=== PATIENT | male | born 1970 | race Caucasian/White ===

== ENCOUNTER 2023-04-25 11:13 | Outpatient (REF) | payer MEDICAID, SELFPAY ==
[2023-04-25 14:49] LABS: MANUAL DIFF FLAG NO
[2023-04-25 14:53] LABS: Basophils Percent Auto 0.3 % (0-2); Eosinophils Absolute Auto 0.1 X10*3/uL (0.0-0.4); Eosinophils Percent Auto 1.5 % (0-4); Hematocrit 49.4 % (42.0-52.0); Hemoglobin 16.4 g/dl (14.0-18.0); Imm Gran Abs Auto 0.03 X10*3/uL (0.00-0.03); Imm Gran Pct Auto 0.3 % (0.0-0.4); Lymphocytes Absolute Auto 1.6 X10*3/uL (1.2-4.9); Lymphocytes Percent Auto 16.8 % (20-40); Mean Corpuscular HGB Conc 33.2 g/dl (31.0-36.0); Mean Corpuscular Hemoglobin 28.8 pg (27.0-33.0); Mean Corpuscular Volume 86.7 fL (80.0-98.0); Mean Platelet Volume 9.3 fL (9.4-12.4); Neutrophils Absolute Auto 6.7 x10*3/uL (2.0-8.3); Neutrophils Percent Auto 70.1 % (45-73); Platelet Count 306 X10*3/uL (160-400); Red Cell Distribution Width 12.8 % (11.0-16.0); White Blood Count 9.5 X10*3/uL (4.8-10.8)
[2023-04-25 15:24] LABS: Alanine Aminotransferase 28 U/L (0-40); Albumin Level 4.5 g/dL (3.5-5.0); Alkaline Phosphatase 105 U/L (39-117); Anion Gap 12 (12-20); Aspartate Amino Transferase 17 U/L (5-37); Bilirubin Total 0.3 mg/dL (0.0-1.0); Blood Urea Nitrogen 23 mg/dL (9-16); Calcium 9.5 mg/dL (8.4-10.2); Carbon Dioxide 25 mmol/L (22-29); Chloride 108 mmol/L (96-108); Cholesterol 221 mg/dL (<200); Estimated Glomerular Filt Rate > 60; Glucose Random 74 mg/dL (60-115); HDL Cholesterol 31 mg/dL (>40); LDL Cholesterol Calculated 136 mg/dL (<100); Potassium 4.1 mmol/L (3.3-5.1); Sodium 141 mmol/L (135-145); Triglycerides 271 mg/dL (<150)
== END 2023-04-25 11:14 | disposition home or self-care (01) ==
LOC: HO.CHCLDS 11:13
PROVIDERS: Visit Provider Internal Medicine
DX: I10 Essential (primary) hypertension (principal)
CPT/HCPCS: 36415; 80053; 80061; 84443; 85025

== ENCOUNTER 2023-05-23 11:48 | Outpatient (REF) | payer MEDICAID, SELFPAY ==
[2023-05-23 15:11] LABS: Prostate Specific Antigen 6.92 ng/mL (<0.05-4.0)
[2023-05-28 14:34] LABS: Testosterone, Free 52.5 pg/mL (35.0-155.0); Testosterone, Total 357 ng/dL (250-1100)
== END 2023-05-23 11:49 | disposition home or self-care (01) ==
LOC: HO.CHCLDS 11:48
PROVIDERS: Visit Provider Internal Medicine
DX: N52.8 Other male erectile dysfunction (principal)
CPT/HCPCS: 36415; 84153; 84402; 84403

== ENCOUNTER → 2023-06-13 12:58 | Outpatient (REF) | payer MEDICAID, SELFPAY ==
--- NOTE | 2023-06-13 13:05 | CA_ITS ---
Transthoracic Echocardiogram Patient (Last, First, Middle): Joseph Bishop, Gender: Male Date of : 1970 Age: 52 Procedure Date: 06/13/2023 Procedure Type: Transthoracic Echocardiogram Location: OP Height: 185.42 cm Weight: 108.86 kg BSA: 2.33 m2 Heart Rate: 66 bpm BP: 125 / 80 mmHg Inspector Type: ALEXANDER Referring MD: Nilsa Morse MD Laborer: Lopez Fritz MD Symptoms: R42 DIZZINESS R4 2 HTN I10 Study Quality: Fair ECG Rhythm: Sinus Conclusions: - Normal study Findings Left Ventricle Normal left ventricular size and systolic function. There is mildly increased left ventricular wall thickness. The visually estimated ejection fraction is between 60-65%. Spectral Doppler is indicative of a normal filling pattern. Peak GLS is -18.9%, within normal limits. Right Ventricle Normal right ventricular cavity size and systolic function. Atria Both atria are normal in size. There is lipomatous hypertrophy of the interatrial septum. There is no evidence of interatrial shunt. Aortic Valve Normal aortic valve structure and function. There is no aortic valve stenosis. There is no aortic valve regurgitation. Mitral Valve Normal mitral valve structure and function. There is trace mitral valve regurgitation. There is no mitral valve stenosis. Pulmonic Valve The pulmonic valve is likely normal. There is trace pulmonic valve regurgitation. Tricuspid Valve Normal tricuspid valve structure. There is trace tricuspid valve regurgitation. The right ventricular systolic pressure is normal. The right ventricular systolic pressure is 13 mmHg. Normal right atrial pressure. There is no evidence of pulmonary hypertension. Great Vessels The pulmonary artery was not well visualized. There is no dilatation of the ascending aorta measuring 3.20 cm. Venous The inferior vena cava is normal in size and collapses greater than 50% with inspiration. Pericardium/Pleural There is no evidence of pericardial effusion. Prior Study Comparison No prior study available for comparison. Measurements 2D Linear Measurements IVSd: 1.12 0.6-0.9/0.6-1.0 cm LVIDd: 3.34 3.9-5.3/4.2-5.9 cm LVIDd Index: 1.43 2.4-3.2/2.2-3.1 cm/m2 LVIDs: 1.88 2.0-3.6 cm LVPWd: 1.14 0.7-1.1 cm LA Diam: 3.40 2.7-3.8/3.0-4.0 cm LAIDs Index: 1.46 1.5-2.3 cm/m2 LV Mass: 211.52 67-162/88-224 g LV Mass Index: 90.78 43-95/49-115 g/m2 LVOT Diam: 1.90 3.0+(-)1.3 cm 2D Systolic Function EF 4C: 64.40 >55% EF 2C: 64.30 >55% EF BiP: 65.10 >55% Mitral Valve MV Pk E: 0.71 MV PK A: 0.63 MV Decel Time: 285.00 E/A: 1.10 E'Lateral: 9.03 E'Medial: 7.83 E/E' Med: 9.00 E/E' Lat: 7.80 PHT: 84.00 MVA PHT: 2.62 Decel Prowers: 2.48 Aortic Valve AoV Pk Saurabh: 1.37 AoV Mn Saurabh: 0.96 AoV VTI: 0.26 AoV Pk Grad: 8.00 Aov Mn Grad: 4.00 VAUGHN Cont.VTI: 2.60 LVOT LVOT Pk Saurabh: 1.32 LVOT Mn Saurabh: 0.90 LVOT VTI: 0.24 LVOT Pk Grad: 7.00 LVOT Mn Grad: 4.00 LVOT Diam: 1.90 LVOT Area: 2.84 Diastolic Function MV Pk E: 0.71 MV Pk A: 0.63 E/A: 1.10 E'Medial: 7.83 E/E' Med: 9.00 E' Laterial: 9.03 E/E' Lat: 7.80 Right Ventricle TAPSE (mm): 21.70 TVS' Saurabh: 12.50 Tricuspid Valve TR Pk Saurabh: 1.60 TR Pk Grad: 10.00 RA Press: 3.00 RVSP: 13.00 Great Vessels Aorta Sinus of Valsalva: 3.50 2.0-3.5 cm Ao Asc: 3.20 2.1-3.4 cm Pulmonary Valve PV Pk Saurabh: 1.26 Peak PV Grad: 6.00 Updated in Other Vendor System with Status of Final Lopez Fritz MD electronically signed on 06/14/2023 2:31:14 PM with status of Final
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
== END ==
LOC: HO.CARD 12:58
PROVIDERS: PCP Internal Medicine; Visit Provider Internal Medicine
DX: I10 Essential (primary) hypertension (principal); R42 Dizziness and giddiness
CPT/HCPCS: 93225; 93306; 93356

== ENCOUNTER → 2023-06-13 13:05 | Outpatient (BNV) | payer MEDICAID, SELFPAY | PROVIDERS: PCP Internal Medicine; Visit Provider Internal Medicine Cardiovascular Disease | DX: R00.1 Bradycardia, unspecified (principal); I47.10 Supraventricular tachycardia, unspecified | CPT/HCPCS: 93227; 93306; 93356 ==

== ENCOUNTER 2023-07-13 12:55 | Outpatient (AMB) | payer MEDICAID, SELFPAY ==
--- NOTE | 2023-07-13 13:15 | MHC.OFFVIS ---
Intake Visit Reasons: elevated PSA, nocturia, erectile dysfunction Intake Note: New patient is present for Elevated PSA, Nocturia, Erectile Dys Urology Med: Tadalafil PVR: 94 Allergies No Known Allergies Allergy (Verified 07/13/23 21:49) Medication List - Last Reconciled 07/13/23 by LEANN Laguna lisinopril-hydrochlorothiazide 20-12.5 mg 1 tab PO QAM rosuvastatin 20 mg PO QAM tadalafil 5 mg PO DAILY tadalafil (Cialis) 5 mg PO DAILY 90 days tadalafil (Cialis) 10 - 20 mg (1 - 2 x 10 mg) PO .PRN PRN 30 days HPI Comments Details: Joseph is a 52 year old male patient of Dr. Morse. He has a PMH of obesity, hypertension, nocturia, hyperlipidemia, and erectile dysfunction. He presents to the office today as a new patient for nocturia, ED, and elevated PSA. In discussion with the patient today he reports having followed up with his PCP at which time labs were ordered and he was noted to have an elevated PSA and recommendations were made for urology referral. He also reports having experienced nocturia for quite some time however has recently had a dental procedure and adjustment of medications were made and he feels this is no longer an issue. He also discusses feeling he has difficulty maintaining his erections. He does endorse to be able to obtain obtain erections. He otherwise denies urinary urgency, urinary frequency, incontinence, nocturia, hematuria, dysuria, foul smelling urine, changes to urinary stream, flank pain, fever, and or chills. He is happy with his current voiding parameters. In office urinalysis results reviewed with the patient today. MALLIKA performed smooth and no suspicious nodules palpated. He denies any known family history of prostate cancer. Discussed at length potential causes for ED and elevated PSA. He otherwise offers no other issues or concerns at this time. In review of patient's chart it appears PSA 05/27 6.9 Testosterone 05/27 357. PFSH Medical History (Updated 07/13/23 @ 21:55 by LEANN Laguna) Nocturia HTN (hypertension) Class 1 obesity Mixed hyperlipidemia Erectile dysfunction Family History Father Chronic kidney disease (CKD) Parkinson disease Social History Patient Tobacco Use Status: Never used Tobacco Review of Systems Const Reports no additional complaints Eyes Reports no additional complaints ENT Reports no additional complaints Card Reports as per HPI Resp Reports no additional complaints GI Reports no additional complaints Reports as per HPI Musc Reports no additional complaints Neuro Reports no additional complaints Psych Reports no additional complaints Endo Reports no additional complaints Alejandro/Lymph Reports no additional complaints Aller/Immun Reports no additional complaints Physical Exam Const General: cooperative, healthy appearing, comfortable, no acute distress, well developed, alert and awake Orientation/consciousness: patient oriented x3 Limitations: no limitations HEENT Head: Yes normal to inspection, Yes normocephalic and Yes atraumatic Ears: hearing grossly normal bilaterally Eyes General: appearance normal, both eyes and all related structures Neck Neck: Yes normal visual inspection and Yes trachea midline Chest Chest palpation & inspection: normal inspection of the chest Resp Effort & Inspection: normal respiratory effort and able to speak in complete sentences Cardio Rate: regular rate GI Inspection: Yes normal to inspection General: Yes no CVA tenderness Back/Spine/Pelvis Back: no CVA tenderness Skin General skin exam: no rashes or lesions noted Neuro General: patient oriented x3 Extrem General: Yes normal to inspection Psych Appearance: grossly normal and well kempt Mental Status: mental status grossly normal Speech and movement: Normal speech and movement present and Clear speech present Affect: normal affect Attitude: cooperative Thought process: Normal thought process present Thought content: Normal thought content present Insight: Fair insight present (Psych) Judgement: Fair judgement present (Psych) Office Procedures Post Void Residual Post Residual Void Post Void Residual (PVR): 94 [id number]-Fpdv Void Residual by ultrasound Results AMB Urinalysis, Automated UA Leukoctes 0 Nicki/uL Last Edit by TAMANNA Babin on 07/13/23 13:37 UA Nitrite Negative Last Edit by TAMANNA Babin on 07/13/23 13:37 UA Urobilinogen 0.2 mg/dL Last Edit by TAMANNA Babin on 07/13/23 13:37 UA Protein 15 mg/dL Last Edit by TAMANNA Babin on 07/13/23 13:37 UA pH 5.0 Last Edit by TAMANNA Babin on 07/13/23 13:37 UA Blood 0 Manish/uL Last Edit by Ileana Ashton, RMA on 07/13/23 13:37 UA Specific [place] 1.025 Last Edit by Ileanalupe Ashton, RMA on 07/13/23 13:37 UA Ketone Negative Last Edit by Ileana Ashton, RMA on 07/13/23 13:37 UA Bilirubin 0 mg/dL Last Edit by Ileana Ashton, RMA on 07/13/23 13:37 UA Glucose 0 mg/dL Last Edit by Ileana Ashton, A on 07/13/23 13:37 Results Reviewed Results Reviewed: Laboratory Last Values Urine pH (Auto) 5.0 07/13/23 13:36 Specific [place] (Auto) 1.025 07/13/23 13:36 Urine Protein (Auto) 15 mg/dL 07/13/23 13:36 Glucose (UA)(Auto) 0 mg/dL 07/13/23 13:36 Urine Ketones (Auto) Negative 07/13/23 13:36 Urine Blood (Auto) 0 Manish/uL 07/13/23 13:36 Urine Nitrite (Auto) Negative 07/13/23 13:36 Urine Bilirubin (Auto) 0 mg/dL 07/13/23 13:36 Urine Urobilinogen (Auto) 0.2 mg/dL 07/13/23 13:36 Leukocyte Esterase (Auto) 0 Nicki/uL 07/13/23 13:36 Assessment & Plan Assessment & Plan (1) Elevated PSA: Code(s): R97.20 - Elevated prostate specific antigen [PSA] Category: Medical (2) Erectile dysfunction: Code(s): N52.9 - Male erectile dysfunction, unspecified Category: Medical Plan In office urinalysis results reviewed with the patient today; as noted above. Discussed at length potential causes for elevated PSA. Patient reports nocturia has since subsided He is happy with his current voiding parameters. Will obtain retroperitoneal ultrasound for further assessment evaluation. Will obtain PSA free and total with no sex the night before, no caffeine morning of, no heavy lifting 1-2 days prior. Continue 5 mg of Cialis daily. P.r.n. prescription provided for additional dosing 1 hour prior to sexual activity. Discussed at length lifestyle modifications to assist with erectile dysfunction. MALLIKA performed; as noted above. Follow-up in 1-2 months with imaging and labs to be completed prior; or sooner with any issues, concerns, and or questions. Orders: Orders US retroperitoneal comp Today R97.20 - Elevated prostate specific antigen [PSA] AMB Urinalysis Automated Today Z13.9 - Encounter for screening, unspecified AMB Post Void Residual by ultrasound Today R35.1 - Nocturia PSA,Total (Free>4and<10) Today R97.20 - Elevated prostate specific antigen [PSA] Medications: New tadalafil (Cialis) [id number] [facility] [id number] 5 mg PO DAILY 90 tabs 2RF 90 days tadalafil (Cialis) administer approximately 30min before sexual activity; do not use more than 1 dose per 24hrs [id number] [facility] [id number] 10 - 20 mg (1 - 2 x 10 mg) PO .PRN PRN 30 tabs 0RF sexual activity 30 days Patient Instructions: The patient had an opportunity to ask questions regarding the treatment plan. All questions were answered. Physical exam, labs, and imaging were discussed and reviewed in detail. As well as risks, benefits, and discussion of treatment choices. No major barriers to understanding were identified. The patient expressed understanding and agreement with the above treatment plan. The patient was made aware they should contact our office by phone for worsening of their current condition, the appearance of new symptoms, or with any questions or concerns. Compliance is encouraged with any medications and follow up testing that is ordered. It is a privilege to be allowed the opportunity to participate in? your urological care.? Again, if you have any questions or concerns If you have any questions or concerns please do not hesitate to contact me. The office is [phone]. This note is constructed using voice recognition software. While every effort has been made to ensure accuracy special education teacher errors may have been included. Yours sincerely, LEANN Laguna Coding Level of Care Code New Pt Level 4 (54469) Diagnoses Elevated PSA R97.20 Erectile dysfunction N52.9 CPT Codes Post Residual Void - PVR CPT Code: 69472-Jjjf Void Residual by ultrasound ([id number])
== END 2023-07-13 14:07 | disposition home or self-care (01) ==
PROVIDERS: PCP Internal Medicine; Visit Provider Nurse Practitioner Family
DX: R97.20 Elevated prostate specific antigen [PSA] (principal); N52.9 Male erectile dysfunction, unspecified; Z13.9 Encounter for screening, unspecified
CPT/HCPCS: 99204

== ENCOUNTER → 2023-07-13 12:55 | Outpatient (BNVA) | payer MEDICAID, SELFPAY | PROVIDERS: PCP Internal Medicine; Visit Provider Nurse Practitioner Family | DX: R97.20 Elevated prostate specific antigen [PSA] (principal); N52.9 Male erectile dysfunction, unspecified | CPT/HCPCS: 51798; 81003; 99212 ==

== ENCOUNTER 2023-07-26 14:07 | Outpatient (REF) | payer MEDICAID, SELFPAY ==
[2023-07-28 12:58] LABS: Free Prostate Spec Ag 2.7 ng/mL; Percent Free Prostate Spec Ag 31 % (calc) (>25); Prostate Specific Ag Total 8.7 ng/mL (< OR = 4.0)
== END 2023-07-26 14:08 | disposition home or self-care (01) ==
LOC: HO.CHCLDS 14:07
PROVIDERS: Visit Provider Nurse Practitioner Family
DX: R97.20 Elevated prostate specific antigen [PSA] (principal)
CPT/HCPCS: 36415; 84153; 84154

== ENCOUNTER 2023-08-08 14:58 | Outpatient (REF) | payer MEDICAID, SELFPAY ==
[2023-08-08 19:06] LABS: PSA,Total (Free>4and<10) 9.23 ng/mL (0.00-4.00)
[2023-08-10 12:59] LABS: Free Prostate Spec Ag 1.2 ng/mL; Percent Free Prostate Spec Ag 15 % (calc) (>25)
== END 2023-08-08 14:59 | disposition home or self-care (01) ==
LOC: HO.CHCLDS 14:58
PROVIDERS: Visit Provider Nurse Practitioner Family
DX: Z12.5 Encounter for screening for malignant neoplasm of prostate (principal); R97.20 Elevated prostate specific antigen [PSA]
CPT/HCPCS: 36415; 84153; 84154

== ENCOUNTER 2023-08-16 09:55 | Outpatient (REF) | payer MEDICAID, SELFPAY ==
--- NOTE | ~2023-08-16 | US_ITS ---
EXAMINATION: US RETROPERITONEAL COMPLETE (RENAL) CLINICAL INFORMATION: Elevated prostate specific antigen. COMPARISON: None available. TECHNIQUE: Real-time imaging of the kidneys and bladder. FINDINGS: RIGHT KIDNEY: 11.4 x 5.8 x 6.1 cm (SAG x AP x TRV). The kidney is normal in size, contour, and echogenicity. Renal cortical thickness is normal. Three right sided echogenic foci are seen consistent with calculi measuring between 4 and 9 mm in size. No hydronephrosis. Multiple complicated benign Bosniak class II renal cysts are noted, the largest measuring 4.1 cm which contain septations. These require no additional imaging or follow-up. No solid renal masses are seen. LEFT KIDNEY: 11.0 x 5.2 x 5.1 cm (SAG x AP x TRV). The kidney is normal in size, contour, and echogenicity. Renal cortical thickness is normal. There is a mid renal echogenic focus measuring 5 mm consistent with a nonobstructing stone. No hydronephrosis. A benign 1.4 cm septated Bosniak class II cyst is noted which requires no additional imaging or follow up. No solid renal masses are seen. BLADDER: Well distended and normal. Bilateral ureteral jets are demonstrated. Prevoid bladder volume is 173 mL. Postvoid bladder volume is 75.8 mL. Enlarged prostate, volume 80.5 mL. US/US retroperitoneal comp IMPRESSION: 1. Bilateral nonobstructing renal calculi. 2. Prostatomegaly measuring 80.5 mL with 75.8 mL postvoid residual. 3. Bilateral Bosniak class II renal cysts which require no additional follow-up.
== END 2023-08-16 09:56 | disposition home or self-care (01) ==
LOC: HO.US 09:55
PROVIDERS: PCP Internal Medicine; Visit Provider Nurse Practitioner Family
DX: R97.20 Elevated prostate specific antigen [PSA] (principal)
CPT/HCPCS: 76770

== ENCOUNTER 2023-09-13 14:40 | Outpatient (AMB) | payer MEDICAID, SELFPAY ==
--- NOTE | 2023-09-13 14:44 | A.OFFVIS_ITS ---
Intake Visit Reasons: 2m/US/PSA(set) Intake Note: Patient presents for follow up visit on: Elevated PSA and Erectile Dysfunction Imagin08/16/23 PSA: 9.23 Urology Medicarions: Tadalafil Blood thinner: none Set Illustrator Required: No Accompanied by: Self / Same As Patient Allergies No Known Allergies Allergy (Verified 09/13/23 21:49) Medication List - Last Reconciled 09/13/23 by DELON Laguna-JOSE levofloxacin 500 mg PO daily 3 days lisinopril-hydrochlorothiazide 20-12.5 mg 1 tab PO QAM rosuvastatin 20 mg PO QAM tadalafil 5 mg PO DAILY tadalafil (Cialis) 5 mg PO DAILY 90 days tadalafil (Cialis) 10 - 20 mg (1 - 2 x 10 mg) PO .PRN PRN 30 days HPI Comments Details: Joseph is a 53 year old male patient of Dr. Morse. He has a PMH of obesity, hypertension, nocturia, hyperlipidemia, and erectile dysfunction. He presents to the office today for follow-up. Of note, patient was seen approximately 2 months ago as a new patient for nocturia, ED, and elevated PSA at which time redraw of PSA was ordered as well as a retroperitoneal ultrasound for further assessment evaluation. These results were reviewed with the patient today. Right kidney with echogenic foci consistent with renal calculi measuring between 4 and 9 mm. No hydronephrosis. Multiple complicated benign Bosniak class 2 renal cysts are noted the largest measuring 4.1 cm which contains septations. These require no additional follow-up per radiology report. Left kidney with mid renal echogenic focus measuring 5 mm consistent with nonobstructing stone. No hydronephrosis. A benign 1.4 cm septated Bosniak class 2 cyst is noted which requires no additional imaging follow-up per radiology report. No solid renal masses noted bilaterally. The bladder is well distended and normal. Bilateral ureteral jets are demonstrated. Pre void bladder volume is approximately 175 mL. Postvoid bladder volume is approximately 75 mL. The prostate is noted to be enlarged at approximately 81 mL. PSAs are as follows: 05/27 6.9, 07/27 9.7 31% free PSA, 08/27 9.2 % free PSA 15%. Discussed at length elevated PSA. Discussed further treatment options to include prostate biopsy versus MRI of the prostate verses surveillance monitoring. Risks and benefits of these interventions were discussed at length. He discusses feeling low-dose Cialis has significantly improved his nocturia and urinary frequency he had been experiencing. He would like to continue at this time. He does continue finding it difficult to maintain his erections. He otherwise denies urinary urgency, urinary frequency, incontinence, hematuria, dysuria, foul smelling urine, changes to urinary stream, flank pain, fever, and or chills. He is happy with his current voiding parameters. In office urinalysis results reviewed with the patient today. MALLIKA during last office visit performed and noted no suspicious nodules palpated. He denies any known family history of prostate cancer. Discussed at length potential causes for ED and elevated PSA. He otherwise offers no other issues or concerns at this time. In review of patient's chart it appears Testosterone 05/27 357. PFSH Medical History Nocturia HTN (hypertension) Class 1 obesity Mixed hyperlipidemia Erectile dysfunction Family History Father Chronic kidney disease (CKD) Parkinson disease Social History Patient Tobacco Use Status: Never used Tobacco Review of Systems Const Reports no additional complaints Eyes Reports no additional complaints ENT Reports no additional complaints Card Reports as per HPI Resp Reports no additional complaints GI Reports no additional complaints Reports as per HPI Musc Reports no additional complaints Neuro Reports no additional complaints Psych Reports no additional complaints Endo Reports no additional complaints Alejandro/Lymph Reports no additional complaints Aller/Immun Reports no additional complaints Physical Exam Const General: cooperative, healthy appearing, comfortable, no acute distress, well developed, alert and awake Orientation/consciousness: patient oriented x3 Limitations: no limitations HEENT Head: Yes normal to inspection, Yes normocephalic and Yes atraumatic Ears: hearing grossly normal bilaterally Eyes General: appearance normal, both eyes and all related structures Neck Neck: Yes normal visual inspection and Yes trachea midline Chest Chest palpation & inspection: normal inspection of the chest Resp Effort & Inspection: normal respiratory effort and able to speak in complete sentences Cardio Rate: regular rate GI Inspection: Yes normal to inspection General: Yes no CVA tenderness Back/Spine/Pelvis Back: no CVA tenderness Skin General skin exam: no rashes or lesions noted Neuro General: patient oriented x3 Extrem General: Yes normal to inspection Psych Appearance: grossly normal and well kempt Mental Status: mental status grossly normal Speech and movement: Normal speech and movement present and Clear speech present Affect: normal affect Attitude: cooperative Thought process: Normal thought process present Thought content: Normal thought content present Insight: Fair insight present (Psych) Judgement: Fair judgement present (Psych) Results AMB Urinalysis, Automated UA Leukoctes 15 Nicki/uL Last Edit by [employer] on 09/13/23 15:06 UA Nitrite Negative Last Edit by [employer] on 09/13/23 15:06 UA Urobilinogen 0.2 mg/dL Last Edit by [employer] on 09/13/23 15:06 UA Protein 0 mg/dL Last Edit by [employer] on 09/13/23 15:06 UA pH 5.5 Last Edit by [employer] on 09/13/23 15:06 UA Blood 10 Manish/uL Last Edit by [employer] on 09/13/23 15:06 UA Specific [place] 1.025 Last Edit by [employer] on 09/13/23 15:06 UA Ketone Negative Last Edit by [employer] on 09/13/23 15:06 UA Bilirubin 0 mg/dL Last Edit by [employer] on 09/13/23 15:06 UA Glucose 0 mg/dL Last Edit by [employer] on 09/13/23 15:06 Results Reviewed Results Reviewed: Laboratory Last Values Urine pH (Auto) 5.5 09/13/23 15:04 Specific [place] (Auto) 1.025 09/13/23 15:04 Urine Protein (Auto) 0 mg/dL 09/13/23 15:04 Glucose (UA)(Auto) 0 mg/dL 09/13/23 15:04 Urine Ketones (Auto) Negative 09/13/23 15:04 Urine Blood (Auto) 10 Manish/uL 09/13/23 15:04 Urine Nitrite (Auto) Negative 09/13/23 15:04 Urine Bilirubin (Auto) 0 mg/dL 09/13/23 15:04 Urine Urobilinogen (Auto) 0.2 mg/dL 09/13/23 15:04 Leukocyte Esterase (Auto) 15 Nicki/uL 09/13/23 15:04 Date of Service: 08/16/23 EXAMINATION: US RETROPERITONEAL COMPLETE (RENAL) FINDINGS: RIGHT KIDNEY: 11.4 x 5.8 x 6.1 cm (SAG x AP x TRV). The kidney is normal in size, contour, and echogenicity. Renal cortical thickness is normal. Three right sided echogenic foci are seen consistent with calculi measuring between 4 and 9 mm in size. No hydronephrosis. Multiple complicated benign Bosniak class II renal cysts are noted, the largest measuring 4.1 cm which contain septations. These require no additional imaging or follow-up. No solid renal masses are seen. LEFT KIDNEY: 11.0 x 5.2 x 5.1 cm (SAG x AP x TRV). The kidney is normal in size, contour, and echogenicity. Renal cortical thickness is normal. There is a mid renal echogenic focus measuring 5 mm consistent with a nonobstructing stone. No hydronephrosis. A benign 1.4 cm septated Bosniak class II cyst is noted which requires no additional imaging or follow up. No solid renal masses are seen. BLADDER: Well distended and normal. Bilateral ureteral jets are demonstrated. Prevoid bladder volume is 173 mL. Postvoid bladder volume is 75.8 mL. Enlarged prostate, volume 80.5 mL. IMPRESSION: 1. Bilateral nonobstructing renal calculi. 2. Prostatomegaly measuring 80.5 mL with 75.8 mL postvoid residual. 3. Bilateral Bosniak class II renal cysts which require no additional follow-up. Assessment & Plan Assessment & Plan (1) Erectile dysfunction: Code(s): N52.9 - Male erectile dysfunction, unspecified Category: Medical (2) Elevated PSA: Code(s): R97.20 - Elevated prostate specific antigen [PSA] Category: Medical (3) Renal cyst: Code(s): N28.1 - Cyst of kidney, acquired Category: Medical (4) Enlarged prostate: Code(s): N40.0 - Benign prostatic hyperplasia without lower urinary tract symptoms Category: Medical Plan: Plan Risks and benefits regarding trans rectal ultrasound with prostate biopsy were discussed.? Options of continued surveillance, no treatment and biopsy were offered. The risks include but are not limited to, urinary tract infection, sepsis, difficulty urinating, bleeding into the rectum or bladder that requires intervention and transfusion,and failure to diagnose prostate cancer. The patient understands the options and the risks involved. They wish to proceed. Printed information was provided to ensure he remains off anticoagulation for the appropriate length of time. He may require cardiology or PCP clearance.? An antibiotic will be administered prior to, and following the p rocedure (5) Nephrolithiasis: Code(s): N20.0 - Calculus of kidney Category: Medical Plan In office urinalysis results reviewed with the patient today; as noted above. Recent retroperitoneal ultrasound results reviewed with the patient today; as noted above. Recent PSA results reviewed with the patient today; as noted above. Discussed, educated, and stressed the importance of hydration relation to nephrolithiasis. Discussed at length potential treatment options for elevated PSA; risks and benefits of these interventions were discussed at length. Continue daily Cialis as well as p.r.n.; refills provided All questions were answered. Will schedule for prostate biopsy as discussed Prescription provided for antibiotic therapy; discussed specific instructions of taking medication day before procedure, day of procedure, and day after. Follow-up per doctor's orders; or sooner with any issues, concerns, and or questions. Orders: Orders AMB Urinalysis Automated Today Z13.9 - Encounter for screening, unspecified Medications: New levofloxacin take 1 tablet day before procedure, 1 tablet day of procedure and 1 tablet day after procedure 500 mg PO daily 3 days 3 tabs 0RF Changed From tadalafil 5 mg PO DAILY To [facility]il [id number] [facility] [id number] 5 mg PO DAILY 90 days 90 tabs 1RF Refilled tadalafil (Cialis) administer approximately 30min before sexual activity; do not use more than 1 dose per 24hrs [id number] [facility] [id number] 10 - 20 mg (1 - 2 x 10 mg) PO .PRN 30 days PRN 30 tabs 0RF sexual activity Discontinued tadalafil (Cialis) [id number] [facility] Member [id number] Discontinued Reason: Duplicate 5 mg PO DAILY 90 days 90 tabs 2RF Patient Instructions: The patient had an opportunity to ask questions regarding the treatment plan. All questions were answered. Physical exam, labs, and imaging were discussed and reviewed in detail. As well as risks, benefits, and discussion of treatment choices. No major barriers to understanding were identified. The patient expressed understanding and agreement with the above treatment plan. The patient was made aware they should contact our office by phone for worsening of their current condition, the appearance of new symptoms, or with any questions or concerns. Compliance is encouraged with any medications and follow up testing that is ordered. It is a privilege to be allowed the opportunity to participate in? your urological care.? Again, if you have any questions or concerns If you have any questions or concerns please do not hesitate to contact me. The office is [phone]. This note is constructed using voice recognition software. While every effort has been made to ensure accuracy insights strategist errors may have been included. Yours sincerely, LEANN Laguna Coding Level of Care Code Est Pt Level 4 (83400) Diagnoses Erectile dysfunction N52.9 Elevated PSA R97.20 Renal cyst N28.1 Enlarged prostate N40.0 Nephrolithiasis N20.0
== END 2023-09-13 15:19 | disposition home or self-care (01) ==
PROVIDERS: PCP Internal Medicine; Visit Provider Nurse Practitioner Family
DX: N52.9 Male erectile dysfunction, unspecified (principal); R97.20 Elevated prostate specific antigen [PSA]; N28.1 Cyst of kidney, acquired; N40.0 Benign prostatic hyperplasia without lower urinary tract symptoms; N20.0 Calculus of kidney; Z13.9 Encounter for screening, unspecified
CPT/HCPCS: 99214

== ENCOUNTER → 2023-09-13 14:40 | Outpatient (BNVA) | payer MEDICAID, SELFPAY | PROVIDERS: PCP Internal Medicine; Visit Provider Nurse Practitioner Family | DX: N52.9 Male erectile dysfunction, unspecified (principal); R97.20 Elevated prostate specific antigen [PSA]; N28.1 Cyst of kidney, acquired; N40.0 Benign prostatic hyperplasia without lower urinary tract symptoms; N20.0 Calculus of kidney; Z79.899 Other long term (current) drug therapy | CPT/HCPCS: 81003; 99212 ==

== ENCOUNTER 2023-10-17 08:01 | Outpatient (REF) | payer MEDICAID, SELFPAY ==
[2023-10-17] MEDS: Lidocaine HCl 1 % MPF 5 ML VIAL 10 ML SUBCUT (08:56)
--- NOTE | 2023-10-17 12:20 | P.OP_ITS ---
Operative Note Operative Note Date of Service: 10/17/23 Narrative: Preoperative diagnosis: Elevated PSA Postoperative diagnosis: Elevated PSA Procedure: 1. transrectal ultrasound measurement of prostate 2. transrectal ultrasound-guided pudendal nerve block 3. transrectal ultrasound-guided prostate biopsy 12 core Surgeon: Dr. Bernard Pang Anesthetic: 10cc 1% lidocaine Indications for procedure: Elevated PSA 08/27 8.0 15% Counselling: Technical aspects, risks and benefits of proposed procedure were discussed in full. All questions have been answered, written consent has been obtained and patient agrees to proceed. Procedure: The patient was brought into the procedure area and placed in a left lateral decubitus position. Patient identity confirmed. Perioperative antibiotics confirmed. Safety pause time out performed. MALLIKA was performed to dilate rectal sphincter Iodine 10cc with 60 cc gel was placed per rectum to reduce infection risk using a catheter tip syringe. 8 Hz Sobia rectal end-fire ultrasound probe was placed transrectally without difficulty. The prostate was visualized. Seminal vesicles were normal. Prostate margins were clearly demarcated. Bladder was seen superiorly. No cystic structures were noted No calcifications were noted at the surgical margin The prostate was otherwise homogeneous in nature The prostate was measured in 3 dimensions Prostatic Width: 5.3 cm Prostatic Height: 5.7 cm Urethral Length: 5.7 cm Total volume equals : 90 ml An ultrasound-guided pudendal nerve block was performed using a 22 gauge spinal needle in the sagittal plane. 4 cc of 1% lidocaine placed at the junction of each seminal vesicle and 2 cc placed at the apex of the prostate. A 12 core biopsy was performed with 6 cores each side using an 18 gauge prostate biopsy gun. Two cores each were taken at the prostate apex, mid and base on each side. Cores were spaced between lateral and medial aspects. Each core was examined as placed on specimen foam as part of vice president quality assurance to ensure a minimum 1 cm of length and minimal discontinuity. He tolerated the procedure well with minimal rectal bleeding. Blood pressure remained stable following procedure. He was able to ambulate to bathroom after 5 minutes. Printed instructions regarding antibiotic use and common adverse events from the procedure such as low-grade temperature, potential infection and bleeding were given. He understands to call the office or go to an emergency room should any of these events arise. Pathology: 12 core prostate biopsy. CPT code 37210: Transrectal ultrasound; this is a diagnostic test for evaluation of the prostate and surrounding structures, looking for abnormalities or suspicious areas worrisome for cancer CPT code 65304: Biopsy, prostate; needle or punch, single or multiple, any approach CPT code 97492: Ultrasonic guidance for needle placement (eg, biopsy, aspiration, injection, localization device), imaging supervision and interpretation
== END 2023-10-17 08:02 | disposition home or self-care (01) ==
LOC: HO.US 08:01
PROVIDERS: PCP Internal Medicine; Visit Provider Urology
DX: R97.20 Elevated prostate specific antigen [PSA] (principal)
CPT/HCPCS: 55700; 76942; 88305

== ENCOUNTER → 2023-10-17 08:01 | Outpatient (BNV) | payer MEDICAID, SELFPAY | PROVIDERS: PCP Internal Medicine; Visit Provider Urology | DX: R97.20 Elevated prostate specific antigen [PSA] (principal) | CPT/HCPCS: 55700; 76872; 76942 ==

== ENCOUNTER 2023-11-03 13:12 | Outpatient (AMB) | payer MEDICAID, SELFPAY ==
--- NOTE | 2023-11-03 13:13 | A.OFFVIS_ITS ---
Intake Visit Reasons: Prostate biopsy results Intake Note: Patient is Present for Telephone Follow Up Prostate Biopsy results Urology Med: Tadalafil Antibiotic Allergy:None Blood Thinner:None Hazardous Substances Scientist Required: No Allergies No Known Allergies Allergy (Verified 11/03/23 13:13) HPI Comments Details: Joseph is a pleasant male. He is a patient of Dr. Kelly. He is see n for the following urologic conditions - elevated PSA - nocturia - erectile dysfunction - nephrolithiasis Telemedicine Evaluation 15 min Consultation DoximYorxs Aidan Video Discussed biopsy results Start finasteride Six-month follow-up Elevated PSA 05/27 6.9, 07/27 9.7 31% free PSA, 08/27 9.2 % free PSA 15%. Ultrasound with prostate volume 80 cc Biopsy - 10/27 negative Nephrolithiasis Renal ultrasound - multiple complicated Bosniak class 2 cysts with 4 mm 9 mm stone on right side Erectile dysfunction Significant improvement in nocturia and urgency frequency with low-dose tadalafil Would like to continue [facility] Medical History Nocturia HTN (hypertension) Class 1 obesity Mixed hyperlipidemia Erectile dysfunction Family History Father Chronic kidney disease (CKD) Parkinson disease Social History Patient Tobacco Use Status: Never used Tobacco Review of Systems Const All systems reviewed & are unremarkable except as noted in HPI and below Reports no additional complaints Resp Reports no additional complaints GI Reports no additional complaints Reports as per HPI Musc Reports no additional complaints Physical Exam Telemedicine evaluation Appropriate responses Regular breathing rate and rhythm HEENT Head: Yes normal to inspection Ears: hearing grossly normal bilaterally Eyes General: appearance normal, both eyes and all related structures Neck Neck: Yes normal visual inspection Chest Chest palpation & inspection: normal inspection of the chest Resp Effort & Inspection: normal respiratory effort and able to speak in complete sentences Telehealth Telehealth Telehealth Platform: [employer] Location of provider rendering services: practice address Location of patient: address on file Patient Identification confirmed using: Name, : Yes Telehealth method: video Patient verbally consented to treatment: Yes Patient verbally consented to billing insurance company: Yes Patient informed of any privacy concerns related to visit: Yes Minutes spent on Phone/Video with Pt.: 15 Assessment & Plan Assessment & Plan (1) Nephrolithiasis: Code(s): N20.0 - Calculus of kidney Category: Medical (2) Elevated PSA: Code(s): R97.20 - Elevated prostate specific antigen [PSA] Category: Medical (3) Erectile dysfunction: Code(s): N52.9 - Male erectile dysfunction, unspecified Category: Medical Plan Start finasteride Six-month follow-up PSA Orders: Orders PSA,Total (Free>4and<10) 6 Months N40.0 - Benign prostatic hyperplasia without lower urinary tract symptoms Medications: New finasteride 5 mg PO DAILY 90 days 90 tabs 1RF N13.8 - Other obstructive and reflux uropathy, N40.0 - Benign prostatic hyperplasia without lower urinary tract symptoms, N40.1 - Benign prostatic hyperplasia with lower urinary tract symptoms, R33.9 - Retention of urine, unspecified Patient Instructions: Imaging studies, laboratory and physical exam results were discussed and reviewed in detail. No major barriers to patient understanding were identified. An opportunity to ask questions regarding the treatment plan was provided. All questions were answered. The patient expressed understanding and agreement with the above treatment plan. The patient is aware they should contact our office by phone for worsening of their current condition or the appearance of new urologic symptoms. Compliance is encouraged with any medications and followup testing that is ordered. It is a privilege to participate in the urologic care of your patient. If you have any questions or concerns regarding treatment for the above conditions, or other urologic issues, please do not hesitate to contact me. The office telep renetta contact is [phone]. This note is constructed using voice recognition software. While every effort has been made to ensure accuracy mechanical manager errors may have been included. Yours sincerely, Dr Bernard Pang MD, ERNESTO [facility] - Urology Providers of Expert, Compassionate Care for the Genitourinary System Coding Level of Care Code Tele Est Pt Level 3 (31886) Diagnoses Nephrolithiasis N20.0 Elevated PSA R97.20 Erectile dysfunction N52.9
== END 2023-11-03 14:16 | disposition home or self-care (01) ==
LOC: HO.HUSH 13:12
PROVIDERS: PCP Internal Medicine; Visit Provider Urology
DX: N20.0 Calculus of kidney (principal); R97.20 Elevated prostate specific antigen [PSA]; N52.9 Male erectile dysfunction, unspecified
CPT/HCPCS: 99213

== ENCOUNTER → 2023-11-03 13:12 | Outpatient (BNVA) | payer MEDICAID, SELFPAY | PROVIDERS: PCP Internal Medicine; Visit Provider Urology ==

== ENCOUNTER 2024-05-02 15:25 | Outpatient (REF) | payer MEDICAID, SELFPAY ==
--- OUTSIDE RECORDS SUMMARY | 2024-05-02 18:45 | XMS_ITS | Encounter Summary ---
Author Organization [employer] Address [address] [place] [address] Care Team Providers Care Ncqa Specialist Name Role Phone Nilsa Morse MD Primary Care Provider [phone] Reason for Visit * Reason Comments Med Refill Encounter Details Date Type Department Care Team ([facility] Contact Info) Description 01/12/2023 Refill [facility] MEDICINE [address], [place] [phone] Nilsa Morse MD [address] [place] [address] Primary hypertension Social History Tobacco Use Types Packs/Day Years Used Date Smoking Tobacco: Never Assessed Sex and Gender Information Value Date Recorded Sex Assigned at Male 01/03/2022 10:33 AM EDT Legal Sex Male 10:33 AM EDT Gender Identity Male 01/03/2022 10:33 AM EDT Sexual Orientation Straight 04/26/2023 5: 58 PM EST documented as of this encounter Plan of Treatment Upcoming Encounters Date Type Department Care Team ([facility] Contact Info) Description 05/20/2024 2:45 PM EDT Office Visit [facility]S [address] [place], [place] [phone] Nilsa Morse MD [address] [place] [address] documented as of this encounter Visit Diagnoses Diagnosis Primary hypertension Unspecified essential hypertension documented in this encounter Care Teams Ncqa Specialist Relationship Specialty Start Date End Date Nilsa Morse MD [address] [place] [address] PCP - General Internal Medicine 04/25/23 documented as of this encounter
--- OUTSIDE RECORDS SUMMARY | 2024-05-02 18:45 | XMS_ITS | Encounter Summary ---
Author Organization [employer] Address [address] [place] [address] [place] [address] Care Team Providers Care Shipyard Supervisor Name Role Phone Nilsa Morse MD Primary Care Provider [phone] Reason for Referral * Consultation (Routine) - Closed Specialty Diagnoses / Procedures Referred By Melvi t Referred To Contact Chiropractic Medicine Diagnoses Neck pain Nilsa Morse MD [address] [place] [address] Phone: tel: fax: [facility] [address] [place] [address] Phone: tel: fax: Referral ID Status Reason Start Date Expiration Date V isits Requested Visits Authorized [id number] Closed Specialty Services Required 05/31/2023 05/30/2024 1 1 * Consultation (Routine) - Closed Specialty Diagnoses / Procedures Referred By Contac t Referred To Contact Urology Diagnoses Nocturia Elevated PSA Nilsa Morse MD [address] [place] [address] Phone: tel: fax: Bernard Pang MD [address] [place] [address] Drive [address] [place] [address] Phone: tel: Referral ID Status Reason Start Date Expiration Date V isits Requested Visits Authorized [id number] Closed Specialty Services Required 05/25/2023 05/24/2024 1 1 Encounter Details Date Type Department Care Team (Late st Contact Info) Description 05/25/2023 Orders Only [facility] [address] [place] [address] Nilsa Morse MD [address] [place] [address] Nocturia (Primary Dx); Elevated PSA; Neck pain Social History Tobacco Use Types Packs/Day Years Used Date Smoking Tobacco: Never Smokeless Tobacco: Never Depression Answer Date Recorded Patient Health Questionnaire-9 Score 1 05/23/2023 Patient Health Questionnaire-9 Score 1 05/23/2023 Last PHQ-9: Questionnaire Data Not on file 0 05/23/2023 Depression Answer Date Recorded Patient Health Questionnaire-2 Score 0 05/23/2023 Sex and Gender Information Value Date Recorded Sex Assigned at Male 01/03/2022 10:33 AM EDT Legal Sex Male 10:33 AM EDT Gender Identity Male 01/03/2022 10:33 AM EDT Sexual Orientation Straight 04/26/2023 5: 58 PM EST documented as of this encounter Plan of Treatment Upcoming Encounters Date Type Department Care Team (Late st Contact Info) Description 05/20/2024 2:45 PM EDT Office Visit [facility] [address] [place] [address] Nilsa Morse MD [address] [place] [address] Scheduled Referrals Name Type Priority Associated Diagnoses Order Schedule Referral to Urology Outpatient Referral Routine Nocturia Elevated PSA Expected: 05/25/2023 (Approximate), Expires: 05/24/2024 Referral to Chiropractic Outpatient Referral Routine Neck pain Expected: 05/31/2023 (Approximate), Expires: 05/30/2024 documented as of this encounter Visit Diagnoses Diagnosis Nocturia- Primary Elevated PSA Elevated prostate specific antigen (PSA) Neck pain Cervicalgia documented in this encounter Additional Health Concerns Assessment Noted Time PHQ-9 Depression Total Score: 1 05/23/19 24 10:34 AM EDT documented as of this encounter Care Teams Shipyard Supervisor Relationship Specialty Start Date End Date Nilsa Morse MD [address] [place] [address] PCP - General Internal Medicine 04/25/23 documented as of this encounter
--- OUTSIDE RECORDS SUMMARY | 2024-05-02 18:45 | XMS_ITS | Clinical Summary ---
Author Organization [employer] Address [address] [place] [address] 7t [place] [address] Care Team Providers Care Distribution Sales Representative Name Role Phone Nilsa Morse MD Primary Care Provider [phone] Allergies No known active allergies Medications amLODIPine (Norvasc) 5 MG tabletIndications:P rimary hypertension Take 1 tablet (5 mg) by mouth in the morning. 90 tablet 3 4 Active lisinopril-hydroCHL OROthiazide 20-12.5 MG tabletIndications:P rimary hypertension Take 1 tablet by mouth in the morning. 90 tablet 3 4 05/23/19 25 Active rosuvastatin (Crestor) 20 MG tabletIndications:M ixed hyperlipidemia Take 1 tablet (20 mg) by mouth in the morning. 30 tablet 11 4 05/23/19 25 Active tadalafil (Cialis) 5 MG tabletIndications:O ther male erectile dysfunction Take 1 tablet (5 mg) by mouth Once per day. 30 tablet 11 4 Active tadalafil (Cialis) 10 MG tabletIndications:O ther male erectile dysfunction Take 1 tablet (10 mg) by mouth if needed each day for erectile dysfunction. 10 tablet 11 4 Active Active Problems Problem Noted Date Diagnosed Date Hypertensive disorder 04/19/2022 Obesity 04/19/2022 Immunizations Name Administration Dates Next Due Pfizer Covid-19 Vaccine 12+ 05/23/2023 Tdap 05/23/2023 Family History Medical History Relation Name Comments dementia Father parkinson disease Father Lung cancer Mother Relation Name Status Comments Father Mother Social History Tobacco Use Types Packs/Day Years Used Date Smoking Tobacco: Never Smokeless Tobacco: Never Depression Answer Date Recorded Patient Health Questionnaire-9 Score 1 05/23/2023 Patient Health Questionnaire-9 Score 1 05/23/2023 Last PHQ-9: Questionnaire Data Not on file 0 05/23/2023 Housing Stability Answer Date Recorded What is your housing situation today? I have faisal sanabria 10/31/[address] you li ve. Do you have problems with any of the following? None of the above 10/31/2023 Food Insecurity Answer Date Recorded Within the past 12 months, y ou worried that your food would run out before you got money to buy more: Never True 10/31/2023 Within the past 12 months,th e food you bought just didn't last and you didn't have enough money to get more: Never True Transportation Answer Date Recorded In the past 12 months, has l ack of transportation kept you from medical appts, meetings, work or from getting things needed for daily living? No 10/31/2023 Utilities Answer Date Recorded In the past 12 months, has t he electric, gas, oil or water company threatened to shut off services in your home? No 10/31/2023 Depression Answer Date Recorded Patient Health Questionnaire-2 Score 0 05/23/2023 Internet Access Answer Date Recorded Internet Access Q1 Yes 11/03/2023 Internet Access Q2 Not on file 11/03/2023 Sex and Gender Information Value Date Recorded Sex Assigned at Male 01/03/2022 10:33 AM EDT Legal Sex Male 10:33 AM EDT Gender Identity Male 01/03/2022 10:33 AM EDT Sexual Orientation Straight 04/26/2023 5: 58 PM EST Last Filed Vital Signs Vital Sign Reading Time Taken Comments Blood Pressure 129/76 11/09/2023 9:16 AM EDT Pulse 64 11/09/2023 9:16 AM EDT Temperature 36.6 ??C (97.9 ??F) 11/09/2023 9:16 AM ED T Respiratory Rate 19 11/09/2023 9:16 AM EDT Oxygen Saturation 100% 11/09/2023 9:16 AM EDT Inhaled Oxygen Concentration - - Weight 107 kg (235 lb) 11/09/2023 9:16 AM EDT Height 185.4 cm (6' 1 ) 11/09/2023 9:16 AM EDT Body Mass Index 31 11/09/2023 9:16 AM EDT Plan of Treatment Upcoming Encounters Date Type Department Care Team ([facility] st Contact Info) Description 05/20/2024 2:45 PM EDT Office Visit [facility] & PEDS [address] [place] [address] Nilsa Morse MD [address] [place] [address] Health Maintenance Due Date Last Done Comments CT Colonography 1970 Colonoscopy 1970 FIT 1970 FOBT 1970 Sigmoidoscopy 1970 Alcohol/Substance Use Screening 1982 Hepatitis C Screening 1988 Hepatitis B Vaccines (1 of 3 - 19+ 3-dose series) 1989 Pneumococcal Vaccine: 50+ Years (1 of 1 - PCV) 2020 Zoster Vaccines (1 of 2) 2020 COVID-19 Vaccine ( season) 2023 05/23/2023, 03/04/2021, 07/27/2020, Additional history exists Influenza Vaccine (#1) 2023 Depression Screening 05/22/2024 05/23/2023, 05/23/19 SDOH Screening 10/30/2024 10/31/2023 Tobacco Screening 11/08/2024 11/09/2023 Colorectal Cancer Screening 05/25/2026 FIT DNA/Cologuard 05/25/2026 05/26/2023 Lipid Panel 04/25/2028 04/25/2023 DTaP/Tdap/Td Vaccines (2 - Td or Tdap) 05/22/2033 05/23/2023 RSV Patients and Patients Aged 60 years or older (1 - 1-dose 75+ series) 2045 HIB Vaccines Aged Out No longer eligi ble based on patient's age to complete this topic HIV Screening Discontinued HPV Vaccines Aged Out No longer eligi ble based on patient's age to complete this topic Hepatitis A Vaccines Aged Out No long er eligible based on patient's age to complete this topic IPV Vaccines Aged Out No longer eligi ble based on patient's age to complete this topic Meningococcal Vaccine Aged Out No kian harlan eligible based on patient's age to complete this topic RSV under 20 months Aged Out No longe r eligible based on patient's age to complete this topic Rotavirus Vaccines Aged Out No longer eligible based on patient's age to complete this topic Procedures Procedure Name Priority Date/Time Associated Diagnosis Comments LAB COLOGUARD?? COLON CANCER SCREEN Routine 05/26/2023 8:30 AM EDT Annual physical exam Screening for colon cancer LIPID PANEL, STANDARD Routine 04/25/2023 11:20 AM EST Primary hypertension from Last 3 Months or Most Recently Relevant to Health Maintenance Results * (ABNORMAL) Cologuard?? colon cancer screening (05/26/2023 8:30 AM EDT) Cologuard Result Positive( A) Negative 06/01/2023 3:26 AM EDT [employer] (CLIA #:[id number]) Comment: POSITIVE TEST RESULT. A positive Cologuard result should be followed with a colonoscopy or visual examination of the colon. The normal value (reference range) for this assay is negative. TEST DESCRIPTION: Composite algorithmic analysis of stool DNA-biomarkers with hemoglobin immunoassay. ?? Quantitative values of individual biomarkers are not reportable and are not associated with individual biomarker result reference ranges. Cologuard is intended for colorectal cancer screening of adults of either sex, 45 years or older, who are at average-risk for colorectal cancer (CRC). Cologuard has been approved for use by the U.S. FDA. The performance of Cologuard was established in a cross sectional study of average-risk adults aged 50-84. Cologuard performance in patients ages 45 to 49 years was estimated by sub-group analysis of near-age groups. Colonoscopies performed for a positive result may find as the most clinically significant lesion: colorectal cancer [4.0%], advanced adenoma (including sessile serrated polyps greater than or equal to 1cm diameter) [20%] or non- advanced adenoma [31%]; or no colorectal neoplasia [45%]. These estimates are derived from a prospective cross-sectional screening study of 10,000 individuals at average risk for colorectal cancer who were screened with both Cologuard and colonoscopy. (Jose Manuel Gant al, N Engl J Med 2014;370(14):6613-6095.) Cologuard may produce a false negative or false positive result (no colorectal cancer or precancerous polyp present at colonoscopy follow up). A negative Cologuard test result does not guarantee the absence of CRC or advanced adenoma (pre-cancer). The current Cologuard screening interval is every 3 years. ([place] Cancer Society and U.S. Multi-Society Task Force). Cologuard performance data in a 10,000 patient pivotal study using colonoscopy as the reference method can be accessed at the following location: www.This Week In/results. Additional description of the Cologuard test process, warnings and precautions can be found at www.[email or web address].Ecal. Stool specimen (specimen) 05/26/2023 8:30 AM EDT 05/27/2023 12:52 PM EDT us Nilsa Morse MD LAB MOLECULAR DIAGNOSTICS O RDERABLES Final Result [employer] (CLIA #:[id number]) [place] [address], * (ABNORMAL) Lipid Panel, Standard (04/25/2023 11:20 AM EST) Triglycerides 271(H) <150 mg/dL [facility] Comment:Desirable Triglyceri de: less than 150 mg/dLBorderline High Triglyceride 150-199 mg/dLHigh Triglyceride: 200-499 mg/dLVery High Triglyceride: greater than or equal to 5OO mg/dL Cholesterol 221(H) <200 mg/dL [facility] Comment:Desirable Cholestero l: less than 200 mg/dLBorderline High Cholesterol: 200-239 mg/dLHigh Cholesterol: greater than 239 mg/dL LDL Cholesterol Calculated 136(H) <100 mg/dL [facility] Comment:Desirable LDL: less than 100 mg/dLNear Optimal/Above Optimal LDL: 110- 129 mg/dLBorderline High LDL: 130-159 mg/dLHigh LDL: 160-189 mg/dLVery High LDL: greater than or equal to 190 mg/dL HDL Cholesterol 31(L) >40 mg/dL [facility] Comment:Desirable HDL: great er than 40 mg/dL Note: This HDL assay may give artificially low results in patients with liver disease. Blood Venous blood specimen / Unknown 04/25/2023 11:20 AM EST 04/25/2023 2:41 PM EST us Nilsa Morse MD LAB BLOOD ORDERABLES Final Result [facility] [address] [place] [phone] from Last 3 Months or Most Recently Relevant to Health Maintenance Insurance [address] [place], [place] [address] Care Teams Distribution Sales Representative Relationship Specialty Start Date End Date Nilsa Morse MD [address] [place] [id number] PCP - General Internal Medicine 04/25/23
--- OUTSIDE RECORDS SUMMARY | 2024-05-02 18:45 | XMS_ITS | Encounter Summary ---
Author Organization [employer] Address [address] [place] [address] [place] [address] Care Team Providers Care Demand Planner Name Role Phone Nilsa Morse MD Primary Care Provider [phone]- [phone] Reason for Visit * Reason Onset Date Comments Med Refill 12/30/2023 Encounter Details Date Type Department Care Team ([facility] st Contact Info) Description 12/30/2023 Refill [facility] [address] [place] [address] Nilsa Morse MD [address] [place] [address] Primary hypertension Social History Tobacco Use Types [...] 05/20/2024 2:45 PM EDT Office Visit [facility] [address] [place] [address] Nilsa Morse MD [address] [place] [address] documented as of this encounter Visit Diagnoses Diagnosis Primary hypertension Unspecified essential hypertension documented in this encounter Additional Health Concerns Assessment Noted Time PHQ-9 Depression Total Score: 1 05/23/19 10:34 AM EDT documented as of this encounter Care Teams Demand Planner Relationship Specialty Start Date End Date Nilsa Morse MD [address] [place] [address] PCP - General Internal Medicine 04/25/23 documented as of this encounter
--- OUTSIDE RECORDS SUMMARY | 2024-05-02 18:45 | XMS_ITS | Encounter Summary ---
Author Organization [employer] Address [address] [place] [address] 7 [place] [address] Care Team Providers Care Partridge Farmer Name Role Phone Nilsa Morse MD Primary Care Provider [phone]- [phone] Encounter Details Date Type Department Care Team ([facility] Contact Info) Description 04/19/2022 Orders Only [facility] [address] [place] [address] Nilsa Morse MD [address] [place], [place] [phone] Primary hypertension (Primary Dx) Social History Tobacco Use Types Packs/Day Years [...] Encounters Date Type Department Care Team (Late Contact Info) Description 05/20/2024 2:45 PM EDT Office Visit [facility] [address] [place], [place] [phone] Nilsa Morse MD [address] [place], [place] [phone] Scheduled Orders Name Type Priority Associated Diagnoses Orde r Schedule Comprehensive Metabolic Panel Lab Routine Primary hypertension Expected: 04/19/2022 (Approximate), Expires: 04/19/2023 CBC auto differential Lab Routine Primary hypertension Expected: 04/19/2022 (Approximate), Expires: 04/19/2023 TSH W/Reflex to FT4 Lab Routine Primary hypertension Expected: 04/19/2022 (Approximate), Expires: 04/19/2023 Lipid Panel, Standard Lab Routine Primary hypertension Expected: 04/19/2022 (Approximate), Expires: 04/19/2023 Hemoglobin A1c Lab Routine Primary hypertension Expected: 04/19/2022 (Approximate), Expires: 04/19/2023 documented as of this encounter Visit Diagnoses Diagnosis Primary hypertension- Primary Unspecified essential hypertension documented in this encounter Care Teams Partridge Farmer Relationship Specialty Start Date End Date Nilsa Morse MD [address] [place] [address] PCP - General Internal Medicine 04/25/23 documented as of this encounter
--- OUTSIDE RECORDS SUMMARY | 2024-05-02 18:45 | XMS_ITS | Encounter Summary ---
Author Organization [employer] Address [address] [place] [address] [place] [address] Care Team Providers Care Indian Blanket Weaver Name Role Phone Nilsa Morse MD Primary Care Provider [phone]- [phone] Reason for Visit * Reason Onset Date Comments Med Refill 08/21/2023 Encounter Details Date Type Department Care Team (Late st Contact Info) Description 08/21/2023 Refill [facility] [address] [place] [address] Nilsa Mores MD [address] [place] [address] Other male erectile dysfunction Social History Tobacco Use Types Packs/Day Years [...] Description 05/20/2024 2:45 PM EDT Office Visit [facility] [address] [place] [address] Nilsa Morse MD [address] [place] [address] documented as of this encounter Visit Diagnoses Diagnosis Other male erectile dysfunction documented in this encounter Additional Health Concerns Assessment Noted Time PHQ-9 Depression Total Score: 1 05/23/19 24 10:34 AM EDT documented as of this encounter Care Teams Indian Blanket Weaver Relationship Specialty Start Date End Date Nilsa Morse MD [address] [place] [address] PCP - General Internal Medicine 04/25/23 documented as of this encounter
--- OUTSIDE RECORDS SUMMARY | 2024-05-02 18:45 | XMS_ITS | Encounter Summary ---
Author Organization [employer] Address [address] [place] [address] Care Team Providers Care Behavioral Health Aide Name Role Phone Nilsa Morse MD Primary Care Provider [phone]- [phone] Encounter Details Date Type Department Care Team ([facility] Contact Info) Description 01/18/2023 Orders Only [facility] [address] [place] [address] Nilsa Morse MD [address] [place] [address] Primary hypertension Social History Tobacco Use Types [...] Description 05/20/2024 2:45 PM EDT Office Visit [facility] PEDS [address] [place] [address] Nilsa Morse MD [address] [place] [address] documented as of this encounter Visit Diagnoses Diagnosis Primary hypertension Unspecified essential hypertension documented in this encounter Care Teams Behavioral Health Aide Relationship Specialty Start Date End Date Nilsa Morse MD [address] [place] [address] PCP - General Internal Medicine 04/25/23 documented as of this encounter
--- OUTSIDE RECORDS SUMMARY | 2024-05-02 18:45 | XMS_ITS | Encounter Summary ---
Author Organization [employer] Address [address] [place] [address] [place] [address] Care Team Providers Care Dobby Loom Fixer Name Role Phone Nilsa Morse MD Primary Care Provider [phone]- [phone] Encounter Details Date Type Department Care Team (Late st Contact Info) Description 04/16/2023 Refill [facility] [address] [place] [address] Nilsa Morse MD [address] [place] [address] Primary hypertension Social History Tobacco Use Types [...] Description 05/20/2024 2:45 PM EDT Office Visit [facility] & PEDS [address] [place] [address] Nilsa Morse MD [address] [place] [address] documented as of this encounter Visit Diagnoses Diagnosis Primary hypertension Unspecified essential hypertension documented in this encounter Care Teams Dobby Loom Fixer Relationship Specialty Start Date End Date Nilsa Morse MD [address] [place] [address] PCP - General Internal Medicine 04/25/23 documented as of this encounter
--- OUTSIDE RECORDS SUMMARY | 2024-05-02 18:45 | XMS_ITS | Encounter Summary ---
Author Organization [employer] Address [address] [place] [address] [place] [address] Care Team Providers Care Blackjack Pit Boss Name Role Phone Nilsa Morse MD Primary Care Provider [phone] Encounter Details Date Type Department Care Team ([facility] Contact Info) Description 06/23/2023 Orders Only [facility] [address] [place], [place] [phone] Nilsa Morse MD [address] [place] [address] Other male erectile dysfunction Social History Tobacco [...] Description 05/20/2024 2:45 PM EDT Office Visit [facility] [address] [place], [place] [phone] Nilsa Morse MD [address] [place], [place] [phone] documented as of this encounter Visit Diagnoses Diagnosis Other male erectile dysfunction documented in this encounter Additional Health Concerns Assessment Noted Time PHQ-9 Depression Total Score: 1 05/23/19 10:34 AM EDT documented as of this encounter Care Teams Blackjack Pit Boss Relationship Specialty Start Date End Date Nilsa Morse MD [address] [place] [address] PCP - General Internal Medicine 04/25/23 documented as of this encounter
--- OUTSIDE RECORDS SUMMARY | 2024-05-02 18:45 | XMS_ITS | Encounter Summary ---
Author Organization [employer] Address [address] [place] [address] [place] [address] Care Team Providers Care Pan Helper Name Role Phone Nilsa Morse MD Primary Care Provider +1- [phone] Encounter Details Date Type Department Care Team ([facility] Contact Info) Description 07/26/2023 Orders Only [facility] [address] [place], [place] [phone] Nilsa Morse MD [address] [place], [place] [phone] Other male erectile dysfunction (Primary Dx) Social History Tobacco Use Types [...] Upcoming Encounters Date Type Department Care Team ([facility] Contact Info) Description 05/20/2024 2:45 PM EDT Office Visit [facility] [address] [place], [place] [phone] Nilsa Morse MD [address] [place] [address] documented as of this encounter Procedures Procedure Name Priority Date/Time Associated Diagnosis Comments US RETROPERITONEAL COMPLETE Routine 08/16/2023 10:20 AM EDT documented in this encounter Results * US Retroperitoneal Complete (08/16/2023 10:20 AM EDT) Anatomical Region Laterality Modality Ultrasound 08/16/2023 10:2 0 AM EDT Narrative 09/06/2023 10:42 AM EDT ? [facility] ?[address] ?[place] [address] ? Ultrasound Report ? Signed ? Patient: Joseph Bishop ?MR#: [id number] ?? [id number] ? : 1970 ?Acct:[id number] ? Age/Sex: 52 / M ?ADM Date: 08/16/23 ? Loc: HO.US ? Attending Dr: Bhavana NORIEGA ? Ordering Physician: Bhavana Valdivia ?? Date of Service: 08/16/23 ?? Procedure(s): US retroperitoneal comp ?? Accession Number(s): [id number] ? cc: Nilsa Morse MD; Bhavana Valdivia ? EXAMINATION: ?? US RETROPERITONEAL COMPLETE (RENAL) ? CLINICAL INFORMATION: ?? Elevated prostate specific antigen. ? COMPARISON: ?? None available. ? TECHNIQUE: ?? Real-time imaging of the kidneys and bladder. ? FINDINGS: ? RIGHT KIDNEY: 11.4 x 5.8 x 6.1 cm (SAG x AP x TRV). The kidney is ?? normal in size, contour, and echogenicity. Renal cortical thickness is ?? normal. Three right sided echogenic foci are seen consistent with ?? calculi measuring between 4 and 9 mm in size. No hydronephrosis. ?? Multiple complicated benign Bosniak class II ??renal cysts are noted, ?? the largest measuring 4.1 cm which contain septations. These require no ?? additional imaging or follow-up. No solid renal masses are seen. ? LEFT KIDNEY: 11.0 x 5.2 x 5.1 cm (SAG x AP x TRV). The kidney is normal ?? in size, contour, and echogenicity. Renal cortical thickness is normal. ?? There is a mid renal echogenic focus measuring 5 mm consistent with a ?? nonobstructing stone. No hydronephrosis. A benign 1.4 cm septated ?? Bosniak class II cyst is noted which requires no additional imaging or ?? follow up. No solid renal masses are seen. ? BLADDER: Well distended and normal. Bilateral ureteral jets are ?? demonstrated. Prevoid bladder volume is 173 mL. Postvoid bladder volume ?? is 75.8 mL. ? Enlarged prostate, volume 80.5 mL. ? US/US retroperitoneal comp ?? IMPRESSION: ?? 1. Bilateral nonobstructing renal calculi. ? 2. Prostatomegaly measuring 80.5 mL with 75.8 mL postvoid residual. ? 3. Bilateral Bosniak class II renal cysts which require no additional ?? follow-up. ? Dictated By: ?Jayden Wilhelm MD ? Signed By: ?<Electronically signed by Jayden Wilhelm MD in OV> ? 09/06/23 1038 ? DD/ 1020 ? TD/TT: ? Soap Tender: SS ? Procedure Note Erin Alford - 09/06/2023 [place] [address] Ultrasound Report Signed Patient: Cami Bishop#: [id number] : 1970Acct:[id number] Age/Sex: 52 / MADM Date: 08/16/23 Loc: HO.US Attending Dr: Bhavana NORIEGA Ordering Physician: Bhavana Valdivia Date of Service: 08/16/23 Procedure(s): US retroperitoneal comp Accession Number(s): [id number] cc: Nilsa Morse MD; Bhavana Valdivia EXAMINATION: US RETROPERITONEAL COMPLETE (RENAL) CLINICAL INFORMATION: Elevated prostate specific antigen. COMPARISON: None available. TECHNIQUE: Real-time imaging of the kidneys and bladder. FINDINGS: RIGHT KIDNEY: 11.4 x 5.8 x 6.1 cm (SAG x AP x TRV). The kidney is normal in size, contour, and echogenicity. Renal cortical thickness is normal. Three right sided echogenic foci are seen consistent with calculi measuring between 4 and 9 mm in size. No hydronephrosis. Multiple complicated benign Bosniak class II renal cysts are noted, the largest measuring 4.1 cm which contain septations. These require no additional imaging or follow-up. No solid renal masses are seen. LEFT KIDNEY: 11.0 x 5.2 x 5.1 cm (SAG x AP x TRV). The kidney is normal in size, contour, and echogenicity. Renal cortical thickness is normal. There is a mid renal echogenic focus measuring 5 mm consistent with a nonobstructing stone. No hydronephrosis. A benign 1.4 cm septated Bosniak class II cyst is noted which requires no additional imaging or follow up. No solid renal masses are seen. BLADDER: Well distended and normal. Bilateral ureteral jets are demonstrated. Prevoid bladder volume is 173 mL. Postvoid bladder volume is 75.8 mL. Enlarged prostate, volume 80.5 mL. US/US retroperitoneal comp IMPRESSION: 1. Bilateral nonobstructing renal calculi. 2. Prostatomegaly measuring 80.5 mL with 75.8 mL postvoid residual. 3. Bilateral Bosniak class II renal cysts which require no additional follow-up. Dictated By: Jayden Wilhelm MD Signed By: <Electronically signed by Jayden Wilhelm MD in OV> 09/06/23 1038 DD/ 1020 TD/TT: Soap Tender: SS us [facility] External Provider IMG US PROCEDURES Final Result documented in this encounter Visit Diagnoses Diagnosis Other male erectile dysfunction- Primary documented in this encounter Additional Health Concerns Assessment Noted Time PHQ-9 Depression Total Score: 1 05/23/19 10:34 AM EDT documented as of this encounter Care Teams Pan Helper Relationship Specialty Start Date End Date Nilsa Morse MD [address] [place] [id number] PCP - General Internal Medicine 04/25/23 documented as of this encounter
--- OUTSIDE RECORDS SUMMARY | 2024-05-02 18:46 | XMS_ITS | Encounter Summary ---
Author Organization [employer] Address [address] [place] [address] Care Team Providers Care Powertrain Design Engineer Name Role Phone Nilsa Morse MD Primary Care Provider [phone]- [phone] Encounter Details Date Type Department Care Team (Late Contact Info) Description 04/21/2023 Orders Only [facility] [address] [place] [address] Nilsa Morse MD [address] [place] [address] Primary hypertension Social History Tobacco Use Types [...] Description 05/20/2024 2:45 PM EDT Office Visit [facility] [address] [place] [address] Nilsa Morse MD [address] [place] [address] documented as of this encounter Visit Diagnoses Diagnosis Primary hypertension Unspecified essential hypertension documented in this encounter Care Teams Powertrain Design Engineer Relationship Specialty Start Date End Date Nilsa Morse MD [address] [place] [address] PCP - General Internal Medicine 04/25/23 documented as of this encounter
[2024-05-02 19:17] LABS: PSA,Total (Free>4and<10) 4.96 ng/mL (0.00-4.00)
[2024-05-06 09:39] LABS: Free Prostate Spec Ag 0.7 ng/mL; Percent Free Prostate Spec Ag 14 % (calc) (>25); Prostate Specific Ag Total 4.9 ng/mL (< OR = 4.0)
== END 2024-05-02 15:26 | disposition home or self-care (01) ==
LOC: HO.CHCLDS 15:25
PROVIDERS: Visit Provider Urology
DX: N40.0 Benign prostatic hyperplasia without lower urinary tract symptoms (principal)
CPT/HCPCS: 36415; 84153; 84154

== ENCOUNTER 2024-05-06 14:24 | Outpatient (AMB) | payer MEDICAID, SELFPAY ==
--- NOTE | 2024-05-06 14:25 | MHC.OFFVIS ---
Intake Visit Reasons: 6m/PSA Intake Note: Patient is Present for PSA/erectile dysfunction/nephrothiasis Urology Med: Tadalafil Antibiotic Allergy:None Blood Thinner:None PSA: 4.96 Plant Engineering Supervisor Required: No Allergies No Known Allergies Allergy (Verified 05/06/24 16:39) Medication List - Last Reconciled 05/06/24 by Bhavana Valdivia, FREIGHT TALLIER- amlodipine 5 mg PO QAM finasteride 5 mg PO DAILY 90 days lisinopril-hydrochlorothiazide 20-12.5 mg 1 tab PO QAM rosuvastatin 20 mg PO QAM tadalafil 5 mg PO DAILY 90 days tadalafil (Cialis) 10 - 20 mg (1 - 2 x 10 mg) PO .PRN PRN 30 days HPI Comments Details: Joseph is a 53 year old male patient of Dr. Morse. He has a PMH of obesity, hypertension, nocturia, hyperlipidemia, and erectile dysfunction. He presents to the office today for follow-up of his elevated PSA. Of note, patient underwent prostate biopsy with Dr. Pang 10/27 that was negative at which time he was started on finasteride and recommendations were made for six-month follow-up with PSA. Previous workup has included a retroperitoneal ultrasound 08/27 noting right kidney with echogenic foci consistent with renal calculi measuring between 4 and 9 mm. No hydronephrosis. Multiple complicated benign Bosniak class 2 renal cysts are noted the largest measuring 4.1 cm which contains septations. These require no additional follow-up per radiology report. Left kidney with mid renal echogenic focus measuring 5 mm consistent with nonobstructing stone. No hydronephrosis. A benign 1.4 cm septated Bosniak class 2 cyst is noted which requires no additional imaging follow-up per radiology report. No solid renal masses noted bilaterally. The bladder is well distended and normal. Bilateral ureteral jets are demonstrated. Pre void bladder volume is approximately 175 mL. Postvoid bladder volume is approximately 75 mL. The prostate is noted to be enlarged at approximately 81 mL. PSAs are as follows: 05/27 6.9, 07/27 9.7 31% free PSA, 08/27 9.2 % free PSA 15%, 04/30 5.0 % free PSA 14% We discussed significant decrease in PSA. He reports significant improvement in episodes of nocturia with low-dose of Cialis. When asked he denies urinary urgency, urinary frequency, incontinence, hematuria, dysuria, foul smelling urine, changes to urinary stream, flank pain, fever, and or chills. He is happy with his current voiding parameters. In office urinalysis results reviewed with the patient today. He has no family history of prostate cancer that he is aware of. He otherwise offers no other issues or concerns at this time. In review of patient's chart it appears Testosterone 05/27 357. PFSH Medical History Nocturia HTN (hypertension) Class 1 obesity Mixed hyperlipidemia Erectile dysfunction Family History Father Chronic kidney disease (CKD) Parkinson disease Social History Patient Tobacco Use Status: Never used Tobacco Review of Systems Const Reports no additional complaints Eyes Reports no additional complaints ENT Reports no additional complaints Card Reports as per HPI Resp Reports no additional complaints GI Reports no additional complaints Reports as per HPI Musc Reports no additional complaints Neuro Reports no additional complaints Psych Reports no additional complaints Endo Reports no additional complaints Alejandro/Lymph Reports no additional complaints Aller/Immun Reports no additional complaints Physical Exam Const General: cooperative, healthy appearing, comfortable, no acute distress, well developed, alert and awake Orientation/consciousness: patient oriented x3 Limitations: no limitations HEENT Head: Yes normal to inspection, Yes normocephalic and Yes atraumatic Ears: hearing grossly normal bilaterally Eyes General: appearance normal, both eyes and all related structures Neck Neck: Yes normal visual inspection and Yes trachea midline Chest Chest palpation & inspection: normal inspection of the chest Resp Effort & Inspection: normal respiratory effort and able to speak in complete sentences Cardio Rate: regular rate GI Inspection: Yes normal to inspection General: Yes no CVA tenderness Back/Spine/Pelvis Back: no CVA tenderness Skin General skin exam: no rashes or lesions noted Neuro General: patient oriented x3 Extrem General: Yes normal to inspection Psych Appearance: grossly normal and well kempt Mental Status: mental status grossly normal Speech and movement: Normal speech and movement present and Clear speech present Affect: normal affect Attitude: cooperative Thought process: Normal thought process present Thought content: Normal thought content present Insight: Fair insight present (Psych) Judgement: Fair judgement present (Psych) Results AMB Urinalysis, Automated UA Leukoctes 0 Nicki/uL Last Edit by Talya Prasad on 05/06/24 14:40 UA Nitrite Negative Last Edit by Crystal Prasad on 05/06/24 14:40 UA Urobilinogen 0.2 mg/dL Last Edit by Crystal Prasad on 05/06/24 14:40 UA Protein 15 mg/dL Last Edit by Crystal Prasad on 05/06/24 14:40 UA pH 6.0 Last Edit by Crystal Prasad on 05/06/24 14:40 UA Blood 10 Manish/uL Last Edit by Crystal Prasad on 05/06/24 14:40 UA Specific [place] 1.020 Last Edit by Talya Prasad on 05/06/24 14:40 UA Ketone Negative Last Edit by Crystal Prasad on 05/06/24 14:40 UA Bilirubin 0 mg/dL Last Edit by Talya Prasad on 05/06/24 14:40 UA Glucose 0 mg/dL Last Edit by Talya Prasad on 05/06/24 14:40 Results Reviewed Results Reviewed: Laboratory Last Values Urine pH (Auto) 6.0 05/06/24 14:26 Specific [place] (Auto) 1.020 05/06/24 14:26 Urine Protein (Auto) 15 mg/dL 05/06/24 14:26 Glucose (UA)(Auto) 0 mg/dL 05/06/24 14:26 Urine Ketones (Auto) Negative 05/06/24 14:26 Urine Blood (Auto) 10 Manish/uL 05/06/24 14:26 Urine Nitrite (Auto) Negative 05/06/24 14:26 Urine Bilirubin (Auto) 0 mg/dL 05/06/24 14:26 Urine Urobilinogen (Auto) 0.2 mg/dL 05/06/24 14:26 Leukocyte Esterase (Auto) 0 Nicki/uL 05/06/24 14:26 Assessment & Plan Assessment & Plan (1) Nephrolithiasis: Code(s): N20.0 - Calculus of kidney Category: Medical (2) Enlarged prostate: Code(s): N40.0 - Benign prostatic hyperplasia without lower urinary tract symptoms Category: Medical (3) Renal cyst: Code(s): N28.1 - Cyst of kidney, acquired Category: Medical (4) Erectile dysfunction: Code(s): N52.9 - Male erectile dysfunction, unspecified Category: Medical (5) Elevated PSA: Code(s): R97.20 - Elevated prostate specific antigen [PSA] Category: Medical Plan In office urinalysis results reviewed with the patient today; as noted above. Recent PSA results reviewed with the patient today; as noted above. Continue finasteride. Continue Cialis daily dosing and p.r.n. dosing as prescribed. Patient currently denies any bothersome urinary issues or concerns. He reports be happy with current voiding parameters. Will obtain renal ultrasound as well as PSA in 6 months. Follow-up in 6 months with imaging and labs to be completed prior; or sooner with any issues, concerns, and or questions. Orders: Orders Prostate Specific Antigen 6 Months N40.0 - Benign prostatic hyperplasia without lower urinary tract symptoms, R97.20 - Elevated prostate specific antigen [PSA] AMB Urinalysis Automated Today Z13.9 - Encounter for screening, unspecified US renal BI 6 Months N20.0 - Calculus of kidney Medications: Refilled tadalafil [id number] [facility] [id number] Member [id number] 5 mg PO DAILY 90 tabs 1RF 90 days finasteride 5 mg PO DAILY 90 tabs 3RF 90 days N13.8 - Other obstructive and reflux uropathy, N40.0 - Benign prostatic hyperplasia without lower urinary tract symptoms, N40.1 - Benign prostatic hyperplasia with lower urinary tract symptoms, R33.9 - Retention of urine, unspecified tadalafil (Cialis) administer approximately 30min before sexual activity; do not use more than 1 dose per 24hrs [id number] [facility] [id number] Member [id number] 10 - 20 mg (1 - 2 x 10 mg) PO .PRN PRN 30 tabs 0RF sexual activity 30 days Patient Instructions: The patient had an opportunity to ask questions regarding the treatment plan. All questions were answered. Physical exam, labs, and imaging were discussed and reviewed in detail. As well as risks, benefits, and discussion of treatment choices. No major barriers to understanding were identified. The patient expressed understanding and agreement with the above treatment plan. The patient was made aware they should contact our office by phone for worsening of their current condition, the appearance of new symptoms, or with any questions or concerns. Compliance is encouraged with any medications and follow up testing that is ordered. It is a privilege to be allowed the opportunity to participate in? your urological care.? Again, if you have any questions or concerns If you have any questions or concerns please do not hesitate to contact me. The office is [phone]. This note is constructed using voice recognition software. While every effort has been made to ensure accuracy deliverer pharmacy errors may have been included. Yours sincerely, LEANN Laguna Coding Level of Care Code Est Pt Level 3 (66024) Diagnoses Nephrolithiasis N20.0 Enlarged prostate N40.0 Renal cyst N28.1 Erectile dysfunction N52.9 Elevated PSA R97.20
--- OUTSIDE RECORDS SUMMARY | 2024-05-06 17:10 | XMS_ITS | Encounter Summary ---
Author Organization [employer] Address [address] [place] [address] [place] [address] Care Team Providers Care Pipeline Inspector Name Role Phone Nilsa Morse MD Primary Care Provider [phone]- [phone] Reason for Visit * Reason Onset Date Comments Med Refill 08/21/2023 Encounter Details Date Type Department Care Team (Late st Contact Info) Description 08/21/2023 Refill [facility] [address] [place] [address] Nilsa Morse MD [address] [place] [address] Other male erectile dysfunction Social History Tobacco [...] Description 05/20/2024 2:45 PM EDT Office Visit [facility] [address] [place] [address] Nilsa Morse MD [address] [place] [address] documented as of this encounter Visit Diagnoses Diagnosis Other male erectile dysfunction documented in this encounter Additional Health Concerns Assessment Noted Time PHQ-9 Depression Total Score: 1 05/23/19 24 10:34 AM EDT documented as of this encounter Care Teams Pipeline Inspector Relationship Specialty Start Date End Date Nilsa Morse MD [address] [place] [address] PCP - General Internal Medicine 04/25/23 documented as of this encounter
--- OUTSIDE RECORDS SUMMARY | 2024-05-06 17:10 | XMS_ITS | Encounter Summary ---
Author Organization [employer] Address [address] [place] [address] [place] [address] Care Team Providers Care Investment Banking Analyst Name Role Phone Nilsa Morse MD Primary Care Provider [phone]- [phone] Reason for Visit * Reason Onset Date Comments Med Refill 12/30/2023 Encounter Details Date Type Department Care Team ([facility] st Contact Info) Description 12/30/2023 Refill [facility] [address] [place] [address] Nilsa Morse MD [address] [place] [address] Primary hypertension Social History Tobacco Use Types [...] 2:45 PM EDT Office Visit [facility] [address] [place] [address] Nilsa Morse MD [address] [place] [address] documented as of this encounter Visit Diagnoses Diagnosis Primary hypertension Unspecified essential hypertension documented in this encounter Additional Health Concerns Assessment Noted Time PHQ-9 Depression Total Score: 1 05/23/19 10:34 AM EDT documented as of this encounter Care Teams Investment Banking Analyst Relationship Specialty Start Date End Date Nilsa Morse MD [address] [place] [address] PCP - General Internal Medicine 04/25/23 documented as of this encounter
--- OUTSIDE RECORDS SUMMARY | 2024-05-06 17:10 | XMS_ITS | Encounter Summary ---
Author Organization [employer] Address [address] [place] [address] [place] [address] Care Team Providers Care Lead Cargo Mover Name Role Phone Nilsa Morse MD Primary Care Provider [phone]- [phone] Encounter Details Date Type Department Care Team (Late Contact Info) Description 01/18/2023 Orders Only [facility] [address] [place] [address] Nilsa Morse MD [address] [place] [address] Primary hypertension Social History Tobacco Use Types [...] Description 05/20/2024 2:45 PM EDT Office Visit [facility] [address] [place] [address] Nilsa Morse MD [address] [place] [address] documented as of this encounter Visit Diagnoses Diagnosis Primary hypertension Unspecified essential hypertension documented in this encounter Care Teams Lead Cargo Mover Relationship Specialty Start Date End Date Nilsa Morse MD [address] [place] [address] PCP - General Internal Medicine 04/25/23 documented as of this encounter
--- OUTSIDE RECORDS SUMMARY | 2024-05-06 17:10 | XMS_ITS | Encounter Summary ---
Author Organization [employer] Address [address] [place] [address] 7 [place] [address] Care Team Providers Care Potline Monitor Name Role Phone Nilsa Morse MD Primary Care Provider +1- [phone] Encounter Details Date Type Department Care Team ([facility] Contact Info) Description 04/19/2022 Orders Only [facility] [address] [place] [address] Nilsa Morse MD [address] [place], [place] [phone] Primary hypertension (Primary Dx) Social History Tobacco [...] Description 05/20/2024 2:45 PM EDT Office Visit [facility] [address] [place], [place] [phone] Nilsa Morse MD [address] [place], [place] [phone] Scheduled Orders Name Type Priority Associated Diagnoses [...] hypertension documented in this encounter Care Teams Potline Monitor Relationship Specialty Start Date End Date Nilsa Morse MD [address] [place] [address] PCP - General Internal Medicine 04/25/23 documented as of this encounter
--- OUTSIDE RECORDS SUMMARY | 2024-05-06 17:10 | XMS_ITS | Encounter Summary ---
Author Organization [employer] Address [address] [place] [address] Care Team Providers Care Health Assistant Name Role Phone Nilsa Morse MD Primary Care Provider +1- [phone] Encounter Details Date Type Department Care Team (Late Contact Info) Description 04/21/[address] [facility] [address] [place] [address] Nilsa Morse MD [address] [place] [address] Primary hypertension Social History Tobacco Use Types [...] PM EDT Office Visit [facility] [address] [place] [address] Nilsa Morse MD [address] [place] [address] documented as of this encounter Visit Diagnoses Diagnosis Primary hypertension Unspecified essential hypertension documented in this encounter Care Teams Health Assistant Relationship Specialty Start Date End Date Nilsa Morse MD [address] [place] [address] PCP - General Internal Medicine 04/25/23 documented as of this encounter
--- OUTSIDE RECORDS SUMMARY | 2024-05-06 17:10 | XMS_ITS | Encounter Summary ---
Author Organization [employer] Address [address] [place] [address] Care Team Providers Care Unemployment Insurance Director Name Role Phone Nilsa Morse MD Primary Care Provider [phone]- [phone] Reason for Visit * Reason Comments Med Refill Encounter Details Date Type Department Care Team ([facility] Contact Info) Description 01/12/2023 Refill [facility] [address] [place], [place] [phone] Nilsa Morse MD [address] [place] [address] Primary hypertension Social History Tobacco Use Types [...] Upcoming Encounters Date Type Department Care Team ([facility] Contact Info) Description 05/20/2024 2:45 PM EDT Office Visit [facility] [address] [place], [place] [phone] Nilsa Morse MD [address] [place] [address] documented as of this encounter Visit Diagnoses Diagnosis Primary hypertension Unspecified essential hypertension documented in this encounter Care Teams Unemployment Insurance Director Relationship Specialty Start Date End Date Nilsa Morse MD [address] [place] [address] PCP - General Internal Medicine 04/25/23 documented as of this encounter
--- OUTSIDE RECORDS SUMMARY | 2024-05-06 17:10 | XMS_ITS | Encounter Summary ---
Author Organization [employer] Address [address] [place] [address] [place] [address] Care Team Providers Care Fitness Professional Name Role Phone Nilsa Morse MD Primary Care Provider +1- [phone] Encounter Details Date Type Department Care Team (Late st Contact Info) Description 04/16/2023 Refill [facility] MEDICINE [address] [place] [address] Nilsa Morse MD [address] [place] [address] Primary hypertension Social History Tobacco Use Types [...] Description 05/20/2024 2:45 PM EDT Office Visit [facility] CHC MED & PEDS [address] [place] [address] Nilsa Morse MD [address] [place] [address] documented as of this encounter Visit Diagnoses Diagnosis Primary hypertension Unspecified essential hypertension documented in this encounter Care Teams Fitness Professional Relationship Specialty Start Date End Date Nilsa Morse MD [address] [place] [address] PCP - General Internal Medicine 04/25/23 documented as of this encounter
--- OUTSIDE RECORDS SUMMARY | 2024-05-06 17:10 | XMS_ITS | Encounter Summary ---
Author Organization [employer] Address [address] [place] [address] [place] [address] Care Team Providers Care Cook Chef Name Role Phone Nilsa Morse MD Primary Care Provider [phone]- [phone] Encounter Details Date Type Department Care Team ([facility] Contact Info) Description 07/26/2023 Orders Only [facility] MED & PEDS [address] [place], [place] [phone] Nilsa Morse MD [address] [place], [place] [phone] Other male erectile dysfunction (Primary Dx) Social [...] Upcoming Encounters Date Type Department Care Team ([facility] Contact Info) Description 05/20/2024 2:45 PM EDT Office Visit [facility] MED & PEDS [address] [place], [place] [phone] Nilsa Morse MD [address] [place] [address] documented as of this encounter Procedures Procedure Name Priority Date/Time Associated Diagnosis Comments US RETROPERITONEAL COMPLETE Routine 08/16/2023 10:20 AM EDT documented in this encounter Results * US Retroperitoneal Complete (08/16/2023 10:20 AM EDT) Anatomical Region Laterality Modality Ultrasound 08/16/2023 10:2 0 AM EDT Narrative 09/06/2023 10:42 AM EDT ? [facility] ?[address] ?[place] [address] ? Ultrasound Report ? Signed ? Patient: Joseph Bishop ?MR#: [id number] ?? 953 ? : 1970 ?Acct:[id number] ? Age/Sex: 52 / M ?ADM Date: 08/16/23 ? Loc: HO.US ? Attending Dr: Bhavana NORIEGA ? Ordering Physician: Bhavana Valdivia ?? Date of Service: 08/16/23 ?? Procedure(s): US retroperitoneal comp ?? Accession Number(s): [id number] ? cc: Nilsa Morse MD; Bhavana Valdivia [...] 1038 ? DD/ 1020 ? TD/TT: ? Sole Filler: SS ? Procedure Note Erin Alford - 09/06/2023 [place] [address] Ultrasound Report Signed Patient: Cami Bishop#: [id number] 953 : 1970Acct:[id number] Age/Sex: 52 / MADM Date: 08/16/23 Loc: HO.US Attending Dr: Bhavana NORIEGA Ordering Physician: Bhavana Valdivia Date of Service: 08/16/23 Procedure(s): US retroperitoneal comp Accession Number(s): [id number] cc: Nilsa Mrose MD; Bhavana Valdivia EXAMINATION: US RETROPERITONEAL COMPLETE [...] in OV> 09/06/23 1038 DD/ 1020 TD/TT: Sole Filler: SS us [facility] External Provider IMG US PROCEDURES Final Result documented in this encounter Visit Diagnoses Diagnosis Other male erectile dysfunction- Primary documented in this encounter Additional Health Concerns Assessment Noted Time PHQ-9 Depression Total Score: 1 05/23/19 10:34 AM EDT documented as of this encounter Care Teams Cook Chef Relationship Specialty Start Date End Date Nilsa Morse MD [address] [place] [address] PCP - General Internal Medicine 04/25/23 documented as of this encounter
--- OUTSIDE RECORDS SUMMARY | 2024-05-06 17:10 | XMS_ITS | Encounter Summary ---
Author Organization [employer] Address [address] [place] [address] [place] [address] Care Team Providers Care Grinding Room Inspector Name Role Phone Nilsa Morse MD Primary Care Provider [phone] Encounter Details Date Type Department Care Team ([facility] Contact Info) Description 06/23/2023 Orders Only [facility] MED & PEDS [address] [place], [place] [phone] Nilsa Morse MD [address] [place] [address] Other male erectile dysfunction Social History Tobacco [...] Description 05/20/2024 2:45 PM EDT Office Visit [facility] MED & PEDS [address] [place], [place] [phone] Nilsa Morse MD [address] [place], [place] [phone] documented as of this encounter Visit Diagnoses Diagnosis Other male erectile dysfunction documented in this encounter Additional Health Concerns Assessment Noted Time PHQ-9 Depression Total Score: 1 05/23/19 10:34 AM EDT documented as of this encounter Care Teams Grinding Room Inspector Relationship Specialty Start Date End Date Nilsa Morse MD [address] [place] [address] PCP - General Internal Medicine 04/25/23 documented as of this encounter
--- OUTSIDE RECORDS SUMMARY | 2024-05-06 17:10 | XMS_ITS | Clinical Summary ---
Author Organization [employer] Address [address] [place] [address] 7t [place] [address] Care Team Providers Care Air Purifier Servicer Name Role Phone Nilsa Morse MD Primary Care Provider [phone]- [phone] Allergies No known active allergies Medications amLODIPine [...] Upcoming Encounters Date Type Department Care Team ([facility] st Contact Info) Description 05/20/2024 2:45 PM EDT Office Visit [facility] CHC MED & PEDS [address] [place] [address] Nilsa Morse MD 505 [place] [address] Health Maintenance Due Date Last Done Comments [...] Positive( A) Negative 06/01/2023 3:26 AM EDT [facility] (CLIA #:[id number]) Comment: POSITIVE TEST RESULT. A positive Cologuard [...] Manuel Gant al, N Engl J Med 2014;370(14):5962-2789.) Cologuard may produce a false negative or false positive result (no colorectal cancer or precancerous polyp present at colonoscopy follow up). A negative Cologuard test result does not guarantee the absence of CRC or advanced adenoma (pre-cancer). The current Cologuard screening interval is every 3 years. ([place] [employer] Society and U.S. Multi-Society Task Force). Cologuard performance data in a 10,000 patient pivotal study using colonoscopy as the reference method can be accessed at the following location: www.[facility]/results. Additional description of the Cologuard test process, warnings and precautions can be found at www.[employer]. Stool specimen (specimen) 05/26/2023 8:30 AM EDT 05/27/2023 12:52 PM EDT us Nilsa Morse MD LAB MOLECULAR DIAGNOSTICS O RDERABLES Final Result [facility] (CLIA #:[id number]) [place] [address], * (ABNORMAL) Lipid Panel, Standard (04/25/2023 11:20 AM EST) Triglycerides 271(H) <150 mg/dL [facility] Comment:Desirable Triglyceri de: less than 150 mg/dLBorderline High Triglyceride 150-199 mg/dLHigh Triglyceride: 200-499 mg/dLVery High Triglyceride: greater than or equal to 5OO mg/dL Cholesterol 221(H) <200 mg/dL [facility] Comment:Desirable Cholestero l: less than 200 mg/dLBorderline High Cholesterol: 200-239 mg/dLHigh Cholesterol: greater than 239 mg/dL LDL Cholesterol Calculated 136(H) <100 mg/dL [facility] Comment:Desirable LDL: less than 100 mg/dLNear Optimal/Above Optimal LDL: 110- 129 mg/dLBorderline High LDL: 130-159 mg/dLHigh LDL: 160-189 mg/dLVery High LDL: greater than or equal to 190 mg/dL HDL Cholesterol 31(L) >40 mg/dL [facility] Comment:Desirable HDL: great er than 40 mg/dL Note: This HDL assay may give artificially low results in patients with liver disease. Blood Venous blood specimen / Unknown 04/25/2023 11:20 AM EST 04/25/2023 2:41 PM EST us Nilsa Morse MD LAB BLOOD ORDERABLES Final Result [facility] [address] [place] [phone] from Last 3 Months or Most Recently Relevant to Health Maintenance Insurance [address] [place], [place] [address] Care Teams Air Purifier Servicer Relationship Specialty Start Date End Date Nilsa Morse MD [address] [place] [address] PCP - General Internal Medicine 04/25/23
--- OUTSIDE RECORDS SUMMARY | 2024-05-06 17:10 | XMS_ITS | Encounter Summary ---
Author Organization [employer] Address [address] [place] [address] [place] [address] Care Team Providers Care Topper Press Operator Automatic Name Role Phone Nilsa Morse MD Primary Care Provider [phone] Reason for Referral * Consultation (Routine) - Closed Specialty Diagnoses / Procedures Referred By Melvi t Referred To Contact Chiropractic Medicine Diagnoses Neck pain Nilsa Morse MD [address] [place] [address] Phone: tel: fax: [facility] [address] [place] [address] Phone: tel: fax: Referral ID Status Reason Start Date Expiration Date V isits Requested Visits Authorized [id number] Closed Specialty Services Required 05/31/2023 05/30/2024 1 1 * Consultation (Routine) - Closed Specialty Diagnoses / Procedures Referred By Contac t Referred To Contact Urology Diagnoses Nocturia Elevated PSA Nilsa Morse MD [address] [place] [address] Phone: tel: fax: Bernard Pang MD [address] [place] [address] Drive [address] [place] [address] Phone: tel: Referral ID Status Reason Start Date Expiration Date V isits Requested Visits Authorized [id number] Closed Specialty Services Required 05/25/2023 05/24/2024 1 1 Encounter Details Date Type Department Care Team (Late st Contact Info) Description 05/25/2023 Orders Only [facility] MED & PEDS [address] [place] [address] Nilsa Morse MD [address] [place] [address] Nocturia (Primary Dx); Elevated PSA; Neck pain [...] [facility] MED & PEDS [address] [place] [address] Nilsa Morse MD [address] [place] [address] Scheduled Referrals Name Type Priority Associated Diagnoses [...] documented as of this encounter Care Teams Topper Press Operator Automatic Relationship Specialty Start Date End Date Nilsa Morse MD [address] [place] [address] PCP - General Internal Medicine 04/25/23 documented as of this encounter
== END 2024-05-06 14:54 | disposition home or self-care (01) ==
PROVIDERS: PCP Internal Medicine; Visit Provider Nurse Practitioner Family
DX: N20.0 Calculus of kidney (principal); N40.0 Benign prostatic hyperplasia without lower urinary tract symptoms; N28.1 Cyst of kidney, acquired; N52.9 Male erectile dysfunction, unspecified; R97.20 Elevated prostate specific antigen [PSA]; Z13.9 Encounter for screening, unspecified
CPT/HCPCS: 99213

== ENCOUNTER → 2024-05-06 14:24 | Outpatient (BNVA) | payer MEDICAID, SELFPAY | PROVIDERS: PCP Internal Medicine; Visit Provider Nurse Practitioner Family | DX: N20.0 Calculus of kidney (principal); N40.0 Benign prostatic hyperplasia without lower urinary tract symptoms; N28.1 Cyst of kidney, acquired; N52.9 Male erectile dysfunction, unspecified; R97.20 Elevated prostate specific antigen [PSA] | CPT/HCPCS: 81003; 99212 ==

== ENCOUNTER 2024-06-04 11:40 | Outpatient (REF) | payer MEDICAID, SELFPAY ==
--- OUTSIDE RECORDS SUMMARY | 2024-06-04 14:04 | XMS_ITS | Encounter Summary ---
Author Organization [employer] Address [address] [place] [address] [place] [address] Care Team Providers Care Clerk Specialist Name Role Phone Nilsa Morse MD Primary Care Provider [phone]- [phone] Reason for Visit * Reason Onset Date Comments Med Refill 08/21/2023 Encounter Details Date Type Department Care Team ([facility] st Contact Info) Description 08/21/2023 Refill [facility] MED & PEDS [address] [place] [address] Nilsa Morse MD [address] [place] [address] Other male erectile dysfunction Social History Tobacco [...] as of this encounter Plan of Treatment Not on file documented as of this encounter Visit Diagnoses Diagnosis Other male erectile dysfunction documented in this encounter Additional Health Concerns Assessment Noted Time PHQ-9 Depression Total Score: 1 05/23/19 24 10:34 AM EDT documented as of this encounter Care Teams Clerk Specialist Relationship Specialty Start Date End Date Nilsa Morse MD [address] [place] [address] PCP - General Internal Medicine 04/25/23 documented as of this encounter
--- OUTSIDE RECORDS SUMMARY | 2024-06-04 14:04 | XMS_ITS | Encounter Summary ---
Author Organization [employer] Address [address] [place] [address] [place] [address] Care Team Providers Care Channel Marketing Coordinator Name Role Phone Nilsa Morse MD Primary Care Provider [phone]- [phone] Reason for Visit * Reason Onset Date Comments Med Refill 12/30/2023 Encounter Details Date Type Department Care Team ([facility] st Contact Info) Description 12/30/2023 Refill [facility] CHC MED & PEDS [address] [place] [address] Nilsa Morse MD [address] [place] [address] Primary hypertension Social History Tobacco Use Types [...] documented as of this encounter Care Teams Channel Marketing Coordinator Relationship Specialty Start Date End Date Nilsa Morse MD [address] [place] [address] PCP - General Internal Medicine 04/25/23 documented as of this encounter
--- OUTSIDE RECORDS SUMMARY | 2024-06-04 14:04 | XMS_ITS | Encounter Summary ---
Author Organization [employer] Address [address] [place] [address] [place] [address] Care Team Providers Care Filler Feeder Name Role Phone Nilsa Morse MD Primary Care Provider [phone] Reason for Referral * Consultation (Routine) - Closed Specialty Diagnoses / Procedures Referred By Melvi t Referred To Contact Chiropractic Medicine Diagnoses Neck pain Nilsa Morse MD [address] [place] [address] Phone: tel: fax: [facility] [address] [place] [address] Phone: tel: fax: Referral ID Status Reason Start Date Expiration Date V isits Requested Visits Authorized [id number] Closed Specialty Services Required 05/31/2023 05/30/2024 1 1 * Consultation (Routine) - Closed Specialty Diagnoses / Procedures Referred By Contac t Referred To Contact Urology Diagnoses Nocturia Elevated PSA Nilsa Morse MD [address] [place] [address] Phone: tel: fax: Bernard Pang MD [address] [place] [address] Drive [address] [place] [address] Phone: tel: Referral ID Status Reason Start Date Expiration Date V isits Requested Visits Authorized [id number] Closed Specialty Services Required 05/25/2023 05/24/2024 1 1 Encounter Details Date Type Department Care Team (Late st Contact Info) Description 05/25/2023 Orders Only [facility] CHC MED & PEDS [address] [place] [address] Nilsa Morse MD [address] [place] [address] Nocturia (Primary Dx); Elevated PSA; Neck pain [...] as of this encounter Plan of Treatment Scheduled Referrals Name Type Priority Associated Diagnoses [...] documented as of this encounter Care Teams Filler Feeder Relationship Specialty Start Date End Date Nilsa Morse MD [address] [place] [address] PCP - General Internal Medicine 04/25/23 documented as of this encounter
--- OUTSIDE RECORDS SUMMARY | 2024-06-04 14:04 | XMS_ITS | Encounter Summary ---
Author Organization [employer] Address [address] [place] [address] [place] [address] Care Team Providers Care Slot Manager Name Role Phone Nilsa Morse MD Primary Care Provider [phone] Encounter Details Date Type Department Care Team (Late st Contact Info) Description 06/23/2023 Orders Only [facility] CHC MED & PEDS [address] [place], [place] [phone] Nilsa Morse MD [address] [place] [address] Other male erectile dysfunction Social History Tobacco [...] documented as of this encounter Care Teams Slot Manager Relationship Specialty Start Date End Date Nilsa Morse MD [address] [place] [address] PCP - General Internal Medicine 04/25/23 documented as of this encounter
--- OUTSIDE RECORDS SUMMARY | 2024-06-04 14:05 | XMS_ITS | Encounter Summary ---
Author Organization [employer] Address [address] [place] [address] 7 [place] [address] Care Team Providers Care Photography Coordinator Name Role Phone Nilsa Morse MD Primary Care Provider [phone]- [phone] Encounter Details Date Type Department Care Team (Late st Contact Info) Description 01/18/2023 Orders Only [facility] CHC MED & PEDS [address] [place], [place] [phone] Nilsa Morse MD [address] [place] [address] Primary hypertension Social History Tobacco Use Types [...] hypertension documented in this encounter Care Teams Photography Coordinator Relationship Specialty Start Date End Date Nilsa Morse MD [address] [place] [address] PCP - General Internal Medicine 04/25/23 documented as of this encounter
--- OUTSIDE RECORDS SUMMARY | 2024-06-04 14:05 | XMS_ITS | Encounter Summary ---
Author Organization [employer] Address [address] [facility] 7 [place] [address] Care Team Providers Care Customer Experience Leader Name Role Phone Nilsa Morse MD Primary Care Provider +[phone] Encounter Details Date Type Department Care Team (Late st Contact Info) Description 04/19/[address] [facility] MEDICINE [address] [place] [address] Nilsa Morse MD [address] [place] [address] Primary hypertension (Primary Dx) Social History Tobacco Use Types Packs/Day Years Used Date Smoking Tobacco: Never Assessed Sex and Gender Information Value Date Recorded Sex Assigned at Male 01/03/2022 10:33 AM EDT Legal Sex Male 10:33 AM EDT Gender Identity Male 01/03/2022 10:33 AM EDT Sexual Orientation Straight 04/26/2023 5: 58 PM EST documented as of this encounter Plan of Treatment Scheduled Orders Name Type Priority Associated Diagnoses [...] hypertension documented in this encounter Care Teams Customer Experience Leader Relationship Specialty Start Date End Date Nilsa Morse MD [address] [place] [address] PCP - General Internal Medicine 04/25/23 documented as of this encounter
--- OUTSIDE RECORDS SUMMARY | 2024-06-04 14:05 | XMS_ITS | Encounter Summary ---
Author Organization [employer] Address [address] [place] [address] 7 [place] [address] Care Team Providers Care Tanning Drum Operator Name Role Phone Nilsa Morse MD Primary Care Provider [phone]- [phone] Encounter Details Date Type Department Care Team (Late st Contact Info) Description 04/21/2023 Orders Only [facility] CHC MED & PEDS [address] [place], [place] [phone] Nilsa Morse MD [address] [place] [address] Primary hypertension Social History Tobacco Use Types [...] hypertension documented in this encounter Care Teams Tanning Drum Operator Relationship Specialty Start Date End Date Nilsa Morse MD [address] [place] [address] PCP - General Internal Medicine 04/25/23 documented as of this encounter
--- OUTSIDE RECORDS SUMMARY | 2024-06-04 14:05 | XMS_ITS | Encounter Summary ---
Author Organization [employer] Address [address] [place] [address] 7 [place] [address] Care Team Providers Care Guide Dog Mobility Instructor Name Role Phone Nilsa Morse MD Primary Care Provider [phone] Encounter Details Date Type Department Care Team (Late st Contact Info) Description 07/26/2023 Orders Only [facility] CHC MED & PEDS [address] [place], [place] [phone] Nilsa Morse MD 505 [place] [address] Other male erectile dysfunction (Primary Dx) Social [...] on file documented as of this encounter Procedures Procedure Name Priority Date/Time Associated Diagnosis Comments US RETROPERITONEAL COMPLETE Routine 08/16/2023 10:20 AM EDT documented in this encounter Results * US Retroperitoneal Complete (08/16/2023 10:20 AM EDT) Anatomical Region Laterality Modality Ultrasound 08/16/2023 10:2 0 AM EDT Narrative 09/06/2023 10:42 AM EDT ? [facility] ?[address] ?[place] [address] ? Ultrasound Report ? Signed ? Patient: Bishop,Joseph ?MR#: [id number] ?? 953 ? : 1970 ?Acct:[id number] ? Age/Sex: 52 / M ?ADM Date: 08/16/23 ? Loc: HO.US ? Attending Dr: Bhavana NORIEGA ? Ordering Physician: Bhavana Valdivia ?? Date of Service: 08/16/23 ?? Procedure(s): US retroperitoneal comp ?? Accession Number(s): [id number] ? cc: Nilsa Morse MD; Bhavana Valdivia [...] 1038 ? DD/ 1020 ? TD/TT: ? Buckle Sewer Machine: SS ? Procedure Note Donnam, Image - 09/06/2023 [place] [address] Ultrasound Report Signed Patient: Cami Bishop#: [id number] 953 : 1970Acct:[id number] Age/Sex: 52 / MADM Date: 08/16/23 Loc: HO.US Attending Dr: Bhavana NORIEGA Ordering Physician: Bhavana Valdivia Date of Service: 08/16/23 Procedure(s): US retroperitoneal comp Accession Number(s): [id number] cc: Nilsa Morse MD; Bhavana Valdivia EXAMINATION: [...] in OV> 09/06/23 1038 DD/ 1020 TD/TT: Buckle Sewer Machine: SS [facility] External Provider IMG US PROCEDURES Final Result documented in this encounter Visit Diagnoses Diagnosis Other male erectile dysfunction- Primary documented in this encounter Additional Health Concerns Assessment Noted Time PHQ-9 Depression Total Score: 1 05/23/19 24 10:34 AM EDT documented as of this encounter Care Teams Guide Dog Mobility Instructor Relationship Specialty Start Date End Date Nilsa Morse MD [address] [place] [address] PCP - General Internal Medicine 04/25/23 documented as of this encounter
--- OUTSIDE RECORDS SUMMARY | 2024-06-04 14:05 | XMS_ITS | Encounter Summary ---
Author Organization [employer] Address [address] [place] [address] [place] [address] Care Team Providers Care Wardrobe Assistant Name Role Phone Nilsa Morse MD Primary Care Provider [phone]- [phone] Reason for Visit * Reason Comments Med Refill Encounter Details Date Type Department Care Team ([facility] st Contact Info) Description 01/12/2023 Refill [facility] MEDICINE [address] [place], [place] [phone] Nilsa Morse MD [address] [place] [address] Primary hypertension Social History Tobacco Use Types [...] hypertension documented in this encounter Care Teams Wardrobe Assistant Relationship Specialty Start Date End Date Nilsa Morse MD [address] [place] [address] PCP - General Internal Medicine 04/25/23 documented as of this encounter
--- OUTSIDE RECORDS SUMMARY | 2024-06-04 14:05 | XMS_ITS | Encounter Summary ---
Author Organization [employer] Address [address] [place] [address] 7 [place] [address] Care Team Providers Care Vp Strategy Name Role Phone Nilsa Morse MD Primary Care Provider +1 [phone] Encounter Details Date Type Department Care Team (Late st Contact Info) Description 04/16/2023 Refill [facility] MEDICINE [address] [place], [place] [phone] Nilsa Morse MD [address] [place], [place] [phone] Primary hypertension Social History Tobacco Use Types [...] hypertension documented in this encounter Care Teams Vp Strategy Relationship Specialty Start Date End Date Nilsa Morse MD [address] [place] [address] PCP - General Internal Medicine 04/25/23 documented as of this encounter
--- OUTSIDE RECORDS SUMMARY | 2024-06-04 14:05 | XMS_ITS | Encounter Summary ---
Author Organization [employer] Address [address] [place] [address] 7 [place] [address] Care Team Providers Care Photographic Editor Name Role Phone Nilsa Morse MD Primary Care Provider [phone] Encounter Details Date Type Department Care Team (Late st Contact Info) Description 05/24/2024 Orders Only [facility] [address] [place] [address] Provider, MD Agatha Social History Tobacco Use Types Packs/Day Years [...] Procedure Name Priority Date/Time Associated Diagnosis Comments PATHOLOGY REPORT (HISTOPATHOLOGY) Routine 05/20/2024 2:58 PM EDT documented in this encounter Results * Pathology Report (Histopathology) (05/20/2024 2:58 PM EDT) Tissue Historical Provider LAB PATHOLOGY ORDERABLES Final Result documented in this encounter Visit Diagnoses Not on filedocumented in this encounter Additional Health Concerns Assessment Noted Time PHQ-9 Depression Total Score: 1 05/23/19 10:34 AM EDT documented as of this encounter Care Teams Photographic Editor Relationship Specialty Start Date End Date Nilsa Morse MD [address] [place] [address] PCP - General Internal Medicine 04/25/23 documented as of this encounter
--- OUTSIDE RECORDS SUMMARY | 2024-06-04 14:05 | XMS_ITS | Clinical Summary ---
Author Organization [employer] Address [address] [place] [address] 7 [place] [address] Care Team Providers Care Upper Cutter Out Name Role Phone Nilsa Morse MD Primary Care Provider [phone] Allergies No known active allergies Medications tadalafil (Cialis) 5 MG tabletIndications :Other male erectile dysfunction Take 1 tablet (5 mg) by mouth Once per day. 30 tablet 11 07/28/19 24 Active tadalafil (Cialis) 10 MG tabletIndications :Other male erectile dysfunction Take 1 tablet (10 mg) by mouth if needed each day for erectile dysfunction . 10 tablet 11 07/26/19 24 Active amLODIPine (Norvasc) 5 MG tabletIndications :Primary hypertension Take 1 tablet (5 mg) by mouth Once per day. 90 tablet 3 05/21/19 25 026 Active lisinopril-hydroC HLOROthiazide 20-12.5 MG tabletIndications :Primary hypertension Take 1 tablet by mouth Once per day. 90 tablet 3 05/21/19 25 026 Active tadalafil (Cialis) 10 MG tabletIndications :Other male erectile dysfunction Take 1 tablet (10 mg) by mouth if needed each day for erectile dysfunction . 10 tablet 05/21/19 25 025 Active amLODIPine (Norvasc) 5 MG tabletIndications :Primary hypertension Take 1 tablet (5 mg) by mouth in the morning. 90 tablet 3 04/21/19 24 025 Discontinued(R eorder (will not trigger notification to Pharmacy)) lisinopril-hydroC HLOROthiazide 20-12.5 MG tabletIndications :Primary hypertension Take 1 tablet by mouth in the morning. 90 tablet 3 05/23/19 24 025 Discontinued(R eorder (will not trigger notification to Pharmacy)) rosuvastatin (Crestor) 20 MG tabletIndications :Mixed hyperlipidemia Take 1 tablet (20 mg) by mouth in the morning. 30 tablet 11 05/23/19 24 025 Discontinued(T herapy completed) Active Problems Problem Noted Date Diagnosed Date Hypertensive disorder 04/19/2022 Obesity 04/19/2022 Encounters Date Type Department Care Team Description 05/24/2024 Orders Only [facility] Information Management [address] [place], [place] [phone] Provider, MD Agatha 05/20/2024 2:45 PM EDT Office Visit [facility] [address] [place] [address] Nilsa Morse MD Annual physical exam (Primary Dx); Primary hypertension; Primary hypertension; Other male erectile dysfunction; Onychodystrophy; Dietary counseling; Exercise counseling; Class 1 obesity due to excess calories with serious comorbidity and body mass index (BMI) of 31.0 to 31.9 in adult 05/19/2024 Travel 05/17/2024 Population Health Risk Score [facility] () Department [address] [place] [id number] Provider, Population Health Generic 05/13/2024 Patient Outreach [facility] [address] [place] [address] Nilsa Morse MD Pre-visit Planning ([facility] unable to reach [facility] ) from Last 3 Months Immunizations Name Administration Dates Next Due Pfizer [...] Sign Reading Time Taken Comments Blood Pressure 138/72 05/20/2024 2:41 PM EDT Pulse 57 05/20/2024 2:41 PM EDT Temperature 36.7 ??C (98 ??F) 05/20/2024 2:41 PM EDT Respiratory Rate 20 05/20/2024 2:41 PM EDT Oxygen Saturation 98% 05/20/2024 2:41 PM EDT Inhaled Oxygen Concentration - - Weight 110 kg (242 lb) 05/20/2024 2:41 PM EDT Height 185.4 cm (6' 1 ) 05/20/2024 2:41 PM EDT Body Mass Index 31.93 05/20/2024 2:41 PM EDT Plan of Treatment Health Maintenance Due Date Last Done Comments CT Colonography 1970 Colonoscopy 1970 FIT 1970 FOBT 1970 Sigmoidoscopy 1970 Hepatitis C Screening 1988 Hepatitis B Vaccines (1 of 3 - 19+ 3-dose series) 1989 Pneumococcal Vaccine: 50+ Years (1 of 1 - PCV) 2020 Zoster Vaccines (1 of 2) 2020 COVID-19 Vaccine ( - season) 2023 05/23/2023, 03/04/2021, 07/27/2020, Additional history exists Influenza Vaccine (#1) 2023 Depression Screening 05/22/2024 05/23/2023, 05/23/19 SDOH Screening 10/30/2024 10/31/2023 Tobacco Screening 11/08/2024 11/09/2023 Alcohol/Substance Use Screening 05/20/2025 05/20/2024 Colorectal Cancer Screening 05/25/2026 FIT DNA/Cologuard 05/25/2026 [...] REPORT (HISTOPATHOLOGY) Routine 05/20/2024 2:58 PM EDT LAB COLOGUARD?? COLON CANCER SCREEN Routine 05/26/2023 8:30 AM EDT Annual physical exam Screening for colon cancer LIPID PANEL, [place] Routine 04/25/2023 11:20 AM EST Primary hypertension from Last 3 Months or Most Recently Relevant to Health Maintenance Results * Pathology Report (Histopathology) (05/20/2024 2:58 PM EDT) Tissue us Historical Provider MD LAB PATHOLOGY ORDERABLES Final Result * (ABNORMAL) Cologuard?? colon cancer screening (05/26/2023 8:30 AM EDT) Cologuard Result Positive( A) Negative 06/01/2023 3:26 AM EDT [facility] (CLIA #:[id number]) Comment: POSITIVE TEST RESULT. A positive Cologuard [...] Manuel Gant al, N Engl J Med 2014;370(14):9408-0805.) Cologuard may produce a false negative or false positive result (no colorectal cancer or precancerous polyp present at colonoscopy follow up). A negative Cologuard test result does not guarantee the absence of CRC or advanced adenoma (pre-cancer). The current Cologuard screening interval is every 3 years. ([employer] and U.S. Multi-Society Task Force). Cologuard performance data in a 10,000 patient pivotal study using colonoscopy as the reference method can be accessed at the following location: www.[employer]aktus/results. Additional description of the Cologuard test process, warnings and precautions can be found at www.KnexxLocalrd.com. Stool specimen (specimen) 05/26/2023 8:30 AM EDT 05/27/2023 12:52 PM EDT us Nilsa Morse MD LAB MOLECULAR DIAGNOSTICS O RDERABLES Final Result [facility] (CLIA #:[id number]) [address] [place] [address], * (ABNORMAL) Lipid Panel, Standard (04/25/2023 11:20 AM EST) Triglycerides 271(H) <150 mg/dL [facility] Comment:Desirable Triglyceri de: less than 150 mg/dLBorderline High Triglyceride 150-199 mg/dLHigh Triglyceride: 200-499 mg/dLVery High Triglyceride: greater than or equal to 5OO mg/dL Cholesterol 221(H) <200 mg/dL [facility] Comment:Desirable Cholestero l: less than 200 mg/dLBorderline High Cholesterol: 200-239 mg/dLHigh Cholesterol: greater than 239 mg/dL LDL Cholesterol Calculated 136(H) <100 mg/dL [facility] Comment:Desirable LDL: less than 100 mg/dLNear Optimal/Above Optimal LDL: 110- 129 mg/dLBorderline High LDL: 130-159 mg/dLHigh LDL: 160-189 mg/dLVery High LDL: greater than or equal to 190 mg/dL HDL Cholesterol 31(L) >40 mg/dL [facility] Comment:Desirable HDL: great er than 40 mg/dL Note: This HDL assay may give artificially low results in patients with liver disease. Blood Venous blood specimen / Unknown 04/25/2023 11:20 AM EST 04/25/2023 2:41 PM EST us Nilsa Morse MD LAB BLOOD ORDERABLES Final Result [facility] [address] [place] [address] [phone] from Last 3 Months or Most Recently Relevant to Health Maintenance Insurance [employer] C3 Care Teams Upper Cutter Out Relationship Specialty Start Date End Date Nilsa Morse MD [address] [place] [address] PCP - General Internal Medicine 04/25/23
[2024-06-04 14:50] LABS: MANUAL DIFF FLAG NO
[2024-06-04 15:03] LABS: Basophils Percent Auto 0.3 % (0-2); Eosinophils Absolute Auto 0.2 X10*3/uL (0.0-0.4); Eosinophils Percent Auto 2.5 % (0-4); Hemoglobin 14.3 g/dl (14.0-18.0); Imm Gran Abs Auto 0.02 X10*3/uL (0.00-0.03); Imm Gran Pct Auto 0.3 % (0.0-0.4); Lymphocytes Absolute Auto 1.7 X10*3/uL (1.2-4.9); Lymphocytes Percent Auto 26.3 % (20-40); Mean Corpuscular HGB Conc 33.3 g/dl (31.0-36.0); Mean Corpuscular Hemoglobin 28.9 pg (27.0-33.0); Mean Platelet Volume 9.5 fL (9.4-12.4); Monocytes Absolute Auto 0.9 X10*3/uL (0.1-1.2); Monocytes Percent Auto 13.5 % (2-11); Neutrophils Absolute Auto 3.6 x10*3/uL (2.0-8.3); Neutrophils Percent Auto 57.1 % (45-73); Platelet Count 259 X10*3/uL (160-400); Red Blood Count 4.94 X10*6/uL (4.60-5.80); Red Cell Distribution Width 12.6 % (11.0-16.0); White Blood Count 6.3 X10*3/uL (4.8-10.8)
[2024-06-04 17:28] LABS: Alanine Aminotransferase 23 U/L (0-40); Albumin Level 4.2 g/dL (3.5-5.0); Alkaline Phosphatase 81 U/L (39-117); Anion Gap 9 (12-20); Aspartate Amino Transferase 23 U/L (5-37); Bilirubin Total 0.5 mg/dL (0.0-1.0); Blood Urea Nitrogen 24 mg/dL (9-16); Carbon Dioxide 28 mmol/L (22-29); Chloride 109 mmol/L (96-108); Cholesterol 161 mg/dL (<200); Estimated Glomerular Filt Rate > 60; Glucose Random 82 mg/dL (60-115); HDL Cholesterol 30 mg/dL (>40); LDL Cholesterol Calculated 107 mg/dL (<100); Potassium 3.9 mmol/L (3.3-5.1); Sodium 142 mmol/L (135-145); Triglycerides 124 mg/dL (<150)
[2024-06-04 17:45] LABS: TSH reflex Free T4 1.38 uIU/mL (0.32-4.0)
[2024-06-05 16:59] LABS: HCV Log PCR <1.18 NOT DETECTED Log IU/mL (NOT DETECTED); HepC Viral Load <15 NOT DETECTED IU/mL (NOT DETECTED)
== END 2024-06-04 11:41 | disposition home or self-care (01) ==
LOC: HO.CHCLDS 11:40
PROVIDERS: Visit Provider Internal Medicine
DX: Z00.00 Encounter for general adult medical examination without abnormal findings (principal); I10 Essential (primary) hypertension
CPT/HCPCS: 36415; 80053; 80061; 84443; 85025; 87522

== ENCOUNTER 2024-11-05 08:33 | Outpatient (REF) | payer MEDICAID, SELFPAY ==
--- OUTSIDE RECORDS SUMMARY | 2024-11-05 09:13 | XMS_ITS | Encounter Summary ---
Author Organization [employer] Address [address] [place] [address] 7 [place] [address] Care Team Providers Care Block Inspector Name Role Phone Nilsa Morse MD Primary Care Provider [phone] Encounter Details Date Type Department Care Team (Late st Contact Info) Description 05/24/2024 Orders Only [facility] Information Management [address] [place], [place] [phone] Provider, MD Agatha Social History Tobacco Use [...] documented as of this encounter Care Teams Block Inspector Relationship Specialty Start Date End Date Nilsa Morse MD [address] [place] [address] PCP - General Internal Medicine 04/25/23 documented as of this encounter
--- OUTSIDE RECORDS SUMMARY | 2024-11-05 09:13 | XMS_ITS | Encounter Summary ---
Author Organization [employer] Address [address] [place] [address] Care Team Providers Care Neonatal Pediatric Nurse Name Role Phone Nilsa Morse MD Primary Care Provider [phone] Reason for Referral * Consultation (Routine) - Closed Specialty Diagnoses / Procedures Referred By Melvi t Referred To Contact Chiropractic Medicine Diagnoses Neck pain Nilsa Morse MD [address] [place] [address] Phone: tel: fax: [facility] [address] [place] [address] Phone: tel: fax: Referral ID Status Reason Start Date Expiration Date V isits Requested Visits Authorized [id number] Closed Specialty Services Required 05/31/2023 05/30/2024 1 1 * Consultation (Routine) - Closed Specialty Diagnoses / Procedures Referred By Contac t Referred To Contact Urology Diagnoses Nocturia Elevated PSA Nilsa Morse MD [address] [place] [address] Phone: tel: fax: Bernard Pang MD [address] [place] [address] Drive [address] [place] [address] Phone: tel: Referral ID Status Reason Start Date Expiration Date V isits Requested Visits Authorized [id number] Closed Specialty Services Required 05/25/2023 05/24/2024 1 1 Encounter Details Date Type Department Care Team (Late st Contact Info) Description 05/25/2023 Orders Only [facility] MED & PEDS [address] [place] [address] Nilsa Morse MD [address] [place] [address] Nocturia (Primary Dx); Elevated PSA; Neck pain [...] documented as of this encounter Care Teams Neonatal Pediatric Nurse Relationship Specialty Start Date End Date Nilsa Morse MD [address] [place] [address] PCP - General Internal Medicine 04/25/23 documented as of this encounter
--- OUTSIDE RECORDS SUMMARY | 2024-11-05 09:13 | XMS_ITS | Encounter Summary ---
Author Organization [employer] Address [address] [place] [address] 7 [place] [address] Care Team Providers Care Manufacturing Electrician Name Role Phone Nilsa Morse MD Primary Care Provider [phone] Encounter Details Date Type Department Care Team (Late st Contact Info) Description 08/26/2024 Orders Only [facility] MED & PEDS [address] [place], [place] [phone] Nilsa Morse MD [address] [place] [address] Other male erectile dysfunction Social History Tobacco [...] documented as of this encounter Care Teams Manufacturing Electrician Relationship Specialty Start Date End Date Nilsa Morse MD [address] [place] [address] PCP - General Internal Medicine 04/25/23 documented as of this encounter
--- OUTSIDE RECORDS SUMMARY | 2024-11-05 09:13 | XMS_ITS | Encounter Summary ---
Author Organization [employer] Address [address] [place] [address] [place] [address] Care Team Providers Care Mill Roll Operator Name Role Phone Nilsa Morse MD Primary Care Provider [phone] Encounter Details Date Type Department Care Team (Late st Contact Info) Description 06/23/2023 Orders Only [facility] MED & PEDS [address] [place], [place] [phone] Nilsa Morse MD [address] [place] [address] Other male erectile dysfunction Social History Tobacco [...] documented as of this encounter Care Teams Mill Roll Operator Relationship Specialty Start Date End Date Nilsa Morse MD [address] [place] [address] PCP - General Internal Medicine 04/25/23 documented as of this encounter
--- OUTSIDE RECORDS SUMMARY | 2024-11-05 09:13 | XMS_ITS | Encounter Summary ---
Author Organization [employer] Address [address] [place] [address] [place] [address] Care Team Providers Care Veneer Drier Tailer Name Role Phone Nilsa Morse MD Primary Care Provider [phone] Reason for Visit * Reason Onset Date Comments Med Refill 12/30/2023 Encounter Details Date Type Department Care Team ([facility] st Contact Info) Description 12/30/2023 Refill [facility] MED & PEDS [address] [place] [address] Nilsa Morse MD [address] [place] [address] Primary hypertension Social History Tobacco Use Types [...] documented as of this encounter Care Teams Veneer Drier Tailer Relationship Specialty Start Date End Date Nilsa Morse MD [address] [place] [address] PCP - General Internal Medicine 04/25/23 documented as of this encounter
--- OUTSIDE RECORDS SUMMARY | 2024-11-05 09:13 | XMS_ITS | Encounter Summary ---
Author Organization [employer] Address [address] [place] [address] 7 [place] [address] Care Team Providers Care Administrative Program Specialist Name Role Phone Nilsa Morse MD Primary Care Provider [phone] Encounter Details Date Type Department Care Team (Late st Contact Info) Description 04/21/2023 Orders Only [facility] MED & PEDS [address] [place], [place] [phone] Nilsa Morse MD [address] [place] [address] Primary hypertension Social History Tobacco Use Types [...] hypertension documented in this encounter Care Teams Administrative Program Specialist Relationship Specialty Start Date End Date Nilsa Morse MD [address] [place] [address] PCP - General Internal Medicine 04/25/23 documented as of this encounter
--- OUTSIDE RECORDS SUMMARY | 2024-11-05 09:13 | XMS_ITS | Encounter Summary ---
Author Organization [email or web address] Address [address] [facility] 7 [place] [address] Care Team Providers Care Paragliding Instructor Name Role Phone Nilsa Morse MD Primary Care Provider [phone]- [phone] Encounter Details Date Type Department Care Team (Late st Contact Info) Description 04/19/2022 Orders Only [facility] MED[facility]INE [address] [place] [address] Nilsa Morse MD [address] [place] [address] Primary hypertension (Primary Dx) Social History Tobacco [...] hypertension documented in this encounter Care Teams Paragliding Instructor Relationship Specialty Start Date End Date Nilsa Morse MD [address] [place] [address] PCP - General Internal Medicine 04/25/23 documented as of this encounter
--- OUTSIDE RECORDS SUMMARY | 2024-11-05 09:13 | XMS_ITS | Encounter Summary ---
Author Organization [employer] Address [address] [place] [address] 7 [place] [address] Care Team Providers Care Wildlife Biologist Name Role Phone Nilsa Morse MD Primary Care Provider [phone]- [phone] Encounter Details Date Type Department Care Team (Late st Contact Info) Description 01/18/2023 Orders Only [facility] MED & PEDS [address] [place], [place] [phone] Nilsa Morse MD [address] [place] [address] Primary hypertension Social History Tobacco Use Types [...] hypertension documented in this encounter Care Teams Wildlife Biologist Relationship Specialty Start Date End Date Nilsa Morse MD [address] [place] [address] PCP - General Internal Medicine 04/25/23 documented as of this encounter
--- OUTSIDE RECORDS SUMMARY | 2024-11-05 09:13 | XMS_ITS | Encounter Summary ---
Author Organization [employer] Address [address] [place] [address] Care Team Providers Care Multicut Line Operator Name Role Phone Nilsa Morse MD Primary Care Provider [phone] Reason for Visit * Reason Onset Date Comments Med Refill 08/21/2023 Encounter Details Date Type Department Care Team ([facility] st Contact Info) Description 08/21/2023 Refill [facility] [address] [place] [address] Nilsa Morse MD [address] [place] [address] Other male erectile dysfunction Social History Tobacco [...] documented as of this encounter Care Teams Multicut Line Operator Relationship Specialty Start Date End Date Nilsa Morse MD [address] [place] [address] PCP - General Internal Medicine 04/25/23 documented as of this encounter
--- OUTSIDE RECORDS SUMMARY | 2024-11-05 09:13 | XMS_ITS | Encounter Summary ---
Author Organization [employer] Address [address] [place] [address] [place] [address] Care Team Providers Care Maintenance Millwright Name Role Phone Nilsa Morse MD Primary Care Provider [phone]- [phone] Reason for Visit * Reason Comments Med Refill Encounter Details Date Type Department Care Team ([facility] st Contact Info) Description 01/12/[address] [facility] MEDICINE [address] [place], [place] [phone] Nilsa Morse MD [address] [place] [address] Primary hypertension Social History Tobacco Use Types [...] hypertension documented in this encounter Care Teams Maintenance Millwright Relationship Specialty Start Date End Date Nilsa Morse MD [address] [place] [address] PCP - General Internal Medicine 04/25/23 documented as of this encounter
--- OUTSIDE RECORDS SUMMARY | 2024-11-05 09:13 | XMS_ITS | Encounter Summary ---
Author Organization [employer] Address [address] [place] [address] 7 [place] [address] Care Team Providers Care Taping Supervisor Name Role Phone Nilsa Morse MD Primary Care Provider [phone]- [phone] Encounter Details Date Type Department Care Team (Late st Contact Info) Description 04/16/2023 Refill [facility] MEDICINE [address] [place], [place] [phone] Nilsa Morse MD [address] [place] [address] Primary hypertension Social History Tobacco Use Types [...] hypertension documented in this encounter Care Teams Taping Supervisor Relationship Specialty Start Date End Date Nilsa Morse MD [address] [place] [address] PCP - General Internal Medicine 04/25/23 documented as of this encounter
--- OUTSIDE RECORDS SUMMARY | 2024-11-05 09:13 | XMS_ITS | Encounter Summary ---
Author Organization [employer] Address [address] [place] [address] 7 [place] [address] Care Team Providers Care Pipe Installer Name Role Phone Nilsa Morse MD Primary Care Provider [phone]- [phone] Encounter Details Date Type Department Care Team (Late st Contact Info) Description 07/26/2023 Orders Only [facility] MED & PEDS [address] [place], [place] [phone] Nilsa Morse MD [address] [place] [address] Other male erectile dysfunction (Primary Dx) Social [...] AM EDT Narrative 09/06/2023 10:42 AM EDT [address] [address] Ultrasound Report Signed Patient: Joseph Bishop MR#: [id number] : 1970 Acct:[id number] Age/Sex: 52 / M ADM Date: 08/16/23 Loc: HO.US Attending Dr: Bhavana COTOPNicci Ordering Physician: Bhavana Valdivia Date of Service: 08/16/23 Procedure(s): US retroperitoneal comp Accession Number(s): [id number] cc: Nilsa Morse MD; Bhavana Valdivia EXAMINATION: [...] in OV> 09/06/23 1038 DD/ 1020 TD/TT: Metal Welder: SS Procedure Note Donotuseinterpreter, Image - 09/06/[address] [address] Ultrasound Report Signed Patient: Cami Bishop#: [id number] : 1970Acct:[id number] Age/Sex: 52 / MADM Date: 08/16/23 Loc: HO.US Attending Dr: Bhavana NORIEGA Ordering Physician: Bhavana Valdivia Date of Service: 08/16/23 Procedure(s): US retroperitoneal comp Accession Number(s): [id number] cc: Nilsa Morse MD; Bhavana Valdivia EXAMINATION: [...] in OV> 09/06/23 1038 DD/ 1020 TD/TT: Metal Welder: ODALYS [facility] External Provider IMG US PROCEDURES Final Result documented in this encounter Visit Diagnoses Diagnosis Other male erectile dysfunction- Primary documented in this encounter Additional Health Concerns Assessment Noted Time PHQ-9 Depression Total Score: 1 05/23/19 24 10:34 AM EDT documented as of this encounter Care Teams Pipe Installer Relationship Specialty Start Date End Date Nilsa Morse MD [address] [place] [address] PCP - General Internal Medicine 04/25/23 documented as of this encounter
--- OUTSIDE RECORDS SUMMARY | 2024-11-05 09:13 | XMS_ITS | Clinical Summary ---
Author Organization [employer] Address [address] [place] [address] 7 [place] [address] Care Team Providers Care Safety Instruction Police Officer Name Role Phone Nilsa Morse MD Primary Care Provider [phone] Allergies No known active allergies Medications tadalafil (Cialis) 10 MG tabletIndications :Other male erectile dysfunction Take 1 tablet (10 mg) by mouth if needed each day for erectile dysfunction. 10 tablet 11 4 Active amLODIPine (Norvasc) 5 MG tabletIndications :Primary hypertension Take 1 tablet (5 mg) by mouth Once per day. 90 tablet 3 5 05/16/19 26 Active lisinopril-hydroC HLOROthiazide 20-12.5 MG tabletIndications :Primary hypertension Take 1 tablet by mouth Once per day. 90 tablet 3 5 05/21/19 26 Active tadalafil (Cialis) 10 MG tabletIndications :Other male erectile dysfunction Take 1 tablet (10 mg) by mouth if needed each day for erectile dysfunction. 10 tablet 5 Active tadalafil (Cialis) 5 MG tabletIndications :Other male erectile dysfunction Take 1 tablet (5 mg) by mouth Once per day. 30 tablet 11 5 Active Active Problems Problem Noted Date Diagnosed Date Hypertensive disorder 04/19/2022 Obesity 04/19/2022 Encounters Date Type Department Care Team Description 08/26/2024 Orders Only [facility] [address] [place] [address] Nilsa Morse MD Other male erectile dysfunction 08/23/2024 Telephone [facility] [address] [place] [address] Nilsa Morse MD recall appt from Last 3 Months Immunizations Immunization Administration Dates Next Due Pfizer Covid-19 Vaccine [...] 57 05/20/2024 2:41 PM EDT Temperature 36.7 C (98 F) 05/20/2024 2:41 PM EDT Respiratory Rate 20 [...] FIT 1970 FOBT 1970 Sigmoidoscopy 1970 Hepatitis B Vaccines (1 of 3 - 19+ 3-dose series) 1989 Pneumococcal Vaccine: 50+ Years (1 of 1 - PCV) 2020 Zoster Vaccines (1 of 2) 2020 COVID-19 Vaccine ( season) 2023 05/23/2023, 03/04/2021, 07/27/2020, Additional history exists Depression Screening 05/22/2024 05/23/2023, 05/23/19 SDOH Screening 10/30/2024 10/31/2023 Influenza Vaccine (#1) 2024 Tobacco Screening 11/08/2024 11/09/2023 Disability Screening 05/19/2025 05/19/2024 Alcohol/Substance Use Screening 05/20/2025 05/20/2024 Colorectal Cancer Screening 05/25/2026 FIT DNA/Cologuard 05/25/2026 05/26/2023 Lipid Panel 06/04/2029 06/04/2024, 04/25/2023 DTaP/Tdap/Td Vaccines (2 - Td or Tdap) 05/22/2033 05/23/2023 RSV Patients and Patients Aged 60 years or older (1 - 1-dose 75+ series) 2045 Hepatitis C Screening Completed 06/04/2024 HIB Vaccines Aged Out No longer eligi [...] patient's age to complete this topic Meningococcal B Vaccine Aged Out No l onger eligible based on patient's age to complete [...] Procedure Name Priority Date/Time Associated Diagnosis Comments HEPATITIS C VIRAL RNA, QUANTITATIVE, REAL-TIME PCR Routine 06/04/2024 11:41 AM EDT Annual physical exam Primary hypertension LIPID PANEL, STANDARD Routine 06/04/2024 11:41 AM EDT Annual physical exam Primary hypertension LAB COLOGUARD COLON CANCER SCREEN Routine 05/26/2023 8:30 AM EDT Annual physical exam Screening for colon cancer from Last 3 Months or Most Recently Relevant to Health Maintenance Results * Hepatitis C Viral RNA, Quantitative, Real-Time PCR (06/04/2024 11:41 AM EDT) Hepatitis C Viral Load <15 NOT DETECTED NOT DETECTED IU/mL [facility] HCV Log PCR <1.18 NOT DETECTED NOT DETECTED Log IU/mL [facility] Comment:For additional infor cece, please refer tohttp://education.Testive/faq/[email or web address](This link is being provided for informational/educational purposes only.)THIS TEST WAS PERFORMED AT:[facility] [place] [id number] AKERS MD Blood Venous blood specimen / Unknown 06/04/2024 11:41 AM EDT 06/04/2024 2:43 PM EDT Nilsa Morse MD LAB BLOOD ORDERABLES Final Result [facility] [address] [place] [address] [phone] * (ABNORMAL) Lipid Panel, Standard (06/04/2024 11:41 AM EDT) Triglycerides 124 <150 mg/dL [facility] Comment:Desirable Triglyceri de: less than 150 mg/dLBorderline High Triglyceride 150-199 mg/dLHigh Triglyceride: 200-499 mg/dLVery High Triglyceride: greater than or equal to 5OO mg/dL Cholesterol 161 <200 mg/dL [facility] Comment:Desirable Cholestero l: less than 200 mg/dLBorderline High Cholesterol: 200-239 mg/dLHigh Cholesterol: greater than 239 mg/dL LDL Cholesterol Calculated 107(H) <100 mg/dL [facility] Comment:Desirable LDL: less than 100 mg/dLNear Optimal/Above Optimal LDL: 110- 129 mg/dLBorderline High LDL: 130-159 mg/dLHigh LDL: 160-189 mg/dLVery High LDL: greater than or equal to 190 mg/dL HDL Cholesterol 30(L) >40 mg/dL [facility] Comment:Desirable HDL: great er than 40 mg/dL Note: This HDL assay may give artificially low results in patients with liver disease. Blood Venous blood specimen / Unknown 06/04/2024 11:41 AM EDT 06/04/2024 2:43 PM EDT Nilsa Morse MD LAB BLOOD ORDERABLES Final Result Performing Organization Address City/[facility]/ZIP Co de Phone Number [facility] [address] [place] [address] [phone] * (ABNORMAL) Cologuard?? colon cancer screening (05/26/2023 8:30 AM EDT) Cologuard Result Positive( A) Negative 06/01/2023 3:26 AM EDT [facility] (CLIA #:[id number]) Comment: POSITIVE TEST RESULT. A positive Cologuard result should be followed with a colonoscopy or visual examination of the colon. The normal value (reference range) for this assay is negative. TEST DESCRIPTION: Composite algorithmic analysis of stool DNA-biomarkers with hemoglobin immunoassay. Quantitative values of individual biomarkers are not [...] with both Cologuard and colonoscopy. (Jose Manuel Johnson. et al, N Engl J Med 2014;370(14):7497-9749.) Cologuard may produce a false negative or false positive result (no colorectal cancer or precancerous polyp present at colonoscopy follow up). A negative Cologuard test result does not guarantee the absence of CRC or advanced adenoma (pre-cancer). The current Cologuard screening interval is every 3 years. ([place] [employer] Society and U.S. Multi-Society Task Force). Cologuard performance data in a 10,000 patient pivotal study using colonoscopy as the reference method can be accessed at the following location: www.[facility].com/results. Additional description of the Cologuard test process, warnings and precautions can be found at www.cologuard.com. Stool specimen (specimen) 05/26/2023 8:30 AM EDT 05/27/2023 12:52 PM EDT us Nilsa Morse MD LAB MOLECULAR DIAGNOSTICS O RDERABLES Final Result [facility] (CLIA #:[id number]) [place] [address], from Last 3 Months or Most Recently Relevant to Health Maintenance Insurance [employer] Care Teams Safety Instruction Police Officer Relationship Specialty Start Date End Date Nilsa Morse MD [address] [place] [phone] PCP - General Internal Medicine 04/25/23
[2024-11-05 15:12] LABS: Prostate Specific Antigen 5.19 ng/mL (<0.05-4.0)
== END 2024-11-05 08:34 | disposition home or self-care (01) ==
LOC: HO.CHCLDS 08:33
PROVIDERS: Visit Provider Nurse Practitioner Family
DX: Z12.5 Encounter for screening for malignant neoplasm of prostate (principal); R97.20 Elevated prostate specific antigen [PSA]; N40.0 Benign prostatic hyperplasia without lower urinary tract symptoms
CPT/HCPCS: 36415; 84153

== ENCOUNTER 2024-12-13 14:28 | Outpatient (REF) | payer MEDICAID, SELFPAY ==
--- NOTE | ~2024-12-13 | US_ITS ---
EXAMINATION: US RETROPERITONEUM HISTORY: N20.0 - Calculus of kidney TECHNIQUE: Real-time grayscale ultrasound imaging of the kidneys was performed and images were reviewed. COMPARISON: Comparison is made with the prior examination dated 08/16/2023. FINDINGS: Right kidney: The right kidney measures 11.8 x 6.8 x 6.1 cm. Renal parenchymal echotexture and thickness are normal. There is a 3.0 x 2.2 x 3.0 cm cystic lesion demonstrating multiple septations and calcifications of the septum. An additional complex cyst is seen in the interpolar region measuring 3.5 x 3.3 x 3.8 cm which also demonstrates septations and calcifications of the septa. A smaller 1.4 x 1.4 x 1.3 cm complex cyst is seen in the interpolar region, demonstrating wall calcification. There are multiple simple cysts in the interpolar region measuring 1.5 x 1.1 x 1.7 cm, 1.0 x 0.5 x 0.9 cm, and 4.0 x 3.4 x 4.2 cm. Multiple nonobstructing calculi are noted in the interpolar region measuring 4 x 4 x 4 mm, 5 x 4 x 5 mm, and 4 x 2 x 5 mm. At the upper pole, a collection of calculi is seen measuring 9 x 11 x 12 mm in aggregate. There is no hydronephrosis. Left Kidney: The left kidney measures 10.7 x 5.9 x 5.2 cm. Renal parenchymal echotexture and thickness are normal. There is a 1.6 x 1.2 x 1.1 cm septated cyst in the interpolar region. An additional solid-appearing mass is noted at the upper pole measuring 3.0 x 2.4 x 1.9 cm. There is no hydronephrosis or renal calculi. The urinary bladder is unremarkable. A right ureteral jet is identified. No left jet is seen. Before voiding, the urinary bladder measured 10.2 x 8.1 x 6.9 cm, for an estimated volume of 298 mL. After voiding, the urinary bladder measured 5.5 x 4.7 x 3.6 cm, for an estimated volume of 49 mL. The prostate measures 5.4 x 5.1 x 4.8 cm, for an estimated volume of 69.1 mL. US/US retroperitoneal comp IMPRESSION: 1. 3.0 x 2.4 x 1.9 cm solid mass at the upper pole of the left kidney. Renal protocol CT or MRI is recommended. 2. Multiple complex appearing renal cysts are seen bilaterally as described above. These could also be evaluated by CT or MRI. 3. Right nephrolithiasis as described. 4. Post void bladder residual of 49 mL. 5. Prostate volume of 69.1 mL. Electronically signed by: Thien Natarajan MD 12/13/2024 03:39 PM EDT
== END 2024-12-13 14:29 | disposition home or self-care (01) ==
LOC: HO.HMGCX 14:28
PROVIDERS: PCP Internal Medicine; Visit Provider Nurse Practitioner Family
DX: N20.0 Calculus of kidney (principal)
CPT/HCPCS: 76770

== ENCOUNTER → 2024-12-13 14:30 | Outpatient (BNV) | payer MEDICAID, SELFPAY | PROVIDERS: PCP Internal Medicine; Visit Provider Radiology Diagnostic Radiology | DX: D49.512 Neoplasm of unspecified behavior of left kidney (principal); N20.0 Calculus of kidney | CPT/HCPCS: 76770 ==

== ENCOUNTER 2025-01-16 14:43 | Outpatient (AMB) | payer MEDICAID, SELFPAY ==
--- NOTE | 2025-01-16 14:45 | MHC.OFFVIS ---
Intake Visit Reasons: US f/u US booked 12/13 Intake Note: Patient is present for US F/U Urology Medication:TADALAFIL,FINASTERIDE Antibiotic Allergy:NONE Blood Thinner:NONE Paper Feeder Required: No Allergies No Known Allergies Allergy (Verified 01/17/25 20:16) Medication List - Last Reconciled 01/17/25 by Bhavana Valdivia, FUSE COILER- amlodipine 5 mg PO QAM finasteride 5 mg PO DAILY 90 days lisinopril-hydrochlorothiazide 20-12.5 mg 1 tab PO QAM rosuvastatin 20 mg PO QAM tadalafil 5 mg PO DAILY 90 days tadalafil (Cialis) 10 - 20 mg (1 - 2 x 10 mg) PO .PRN PRN 30 days HPI Comments Details: Joseph is a 54 year old male patient of Dr. Morse who is accompanied by his significant other. He has a PMH of obesity, hypertension, nocturia, hyperlipidemia, and erectile dysfunction. He presents to the office today for follow-up of his elevated PSA and renal cyst. In discussion with the patient today he reports to be doing and feeling well. He denies having had any bothersome urinary issues or concerns since his last office visit here. Most recent PSA and retroperitoneal ultrasound results reviewed with the patient today. 12/28 3.0 cm solid mass at the upper pole of the left kidney renal mass protocol recommended per radiology report. Mild complex appearing renal cysts are seen bilaterally. Multiple nonobstructing calculi are noted in the interpolar region of the right kidney measuring a proximally 5 mm. Prostate volume of 70 mL. No hydronephrosis noted bilaterally. PSAs are as follows: 05/27 6.9, 07/27 9.7 31% free PSA, 08/27 9.2 % free PSA 15%, 04/30 5.0 % free PSA 14%, 11/28 5.2 Of note, patient underwent prostate biopsy with Dr. Pang 10/27 that was negative at which time he was started on finasteride. Previous imaging retroperitoneal ultrasound 08/27 noting right kidney with echogenic foci consistent with renal calculi measuring between 4 and 9 mm. No hydronephrosis. Multiple complicated benign Bosniak class 2 renal cysts are noted the largest measuring 4.1 cm which contains septations. These require no additional follow-up per radiology report. Left kidney with mid renal echogenic focus measuring 5 mm consistent with nonobstructing stone. No hydronephrosis. A benign 1.4 cm septated Bosniak class 2 cyst is noted which requires no additional imaging follow-up per radiology report. No solid renal masses noted bilaterally. The bladder is well distended and normal. Bilateral ureteral jets are demonstrated. Pre void bladder volume is approximately 175 mL. Postvoid bladder volume is approximately 75 mL. The prostate is noted to be enlarged at approximately 81 mL. When asked he does report compliance with daily low-dose tadalafil as well as finasteride. In office urinalysis results reviewed with the patient today. He denies urinary urgency, urinary frequency, incontinence, hematuria, dysuria, foul smelling urine, changes to urinary stream, flank pain, fever, and or chills. He is happy with his current voiding parameters. He has no family history of prostate cancer that he is aware of. We did discussed at length renal cyst as well as elevated PSA in the setting of compliance with finasteride. We did discussed further treatment options of these urological conditions and risks and benefits of these treatment options. All questions were answered. He otherwise offers no other issues or concerns at this time. [facility] Medical History Nocturia HTN (hypertension) Class 1 obesity Mixed hyperlipidemia Erectile dysfunction Family History Father Chronic kidney disease (CKD) Parkinson disease Social History Patient Tobacco Use Status: Never used Tobacco Review of Systems Const Reports no additional complaints Eyes Reports no additional complaints ENT Reports no additional complaints Card Reports as per HPI Resp Reports no additional complaints GI Reports no additional complaints Reports as per HPI Musc Reports no additional complaints Neuro Reports no additional complaints Psych Reports no additional complaints Endo Reports no additional complaints Alejandro/Lymph Reports no additional complaints Aller/Immun Reports no additional complaints Physical Exam Const General: cooperative, healthy appearing, comfortable, no acute distress, well developed, alert and awake Orientation/consciousness: patient oriented x3 Limitations: no limitations HEENT Head: Yes normal to inspection, Yes normocephalic and Yes atraumatic Ears: hearing grossly normal bilaterally Eyes General: appearance normal, both eyes and all related structures Neck Neck: Yes normal visual inspection and Yes trachea midline Chest Chest palpation & inspection: normal inspection of the chest Resp Effort & Inspection: normal respiratory effort and able to speak in complete sentences Cardio Rate: regular rate GI Inspection: Yes normal to inspection General: Yes no CVA tenderness Back/Spine/Pelvis Back: no CVA tenderness Skin General skin exam: no rashes or lesions noted Neuro General: patient oriented x3 Extrem General: Yes normal to inspection Psych Appearance: grossly normal and well kempt Mental Status: mental status grossly normal Speech and movement: Normal speech and movement present and Clear speech present Affect: normal affect Attitude: cooperative Thought process: Normal thought process present Thought content: Normal thought content present Insight: Fair insight present (Psych) Judgement: Fair judgement present (Psych) Results AMB Urinalysis, Automated UA Leukoctes 0 Nicki/uL Last Edit by Elma Young [facility] on 01/16/25 15:27 UA Nitrite Negative Last Edit by Elma Young [facility] on 01/16/25 15:27 UA Urobilinogen 0.2 mg/dL Last Edit by Elma Young [facility] on 01/16/25 15:27 UA Protein 0 mg/dL Last Edit by Elma Young [facility] on 01/16/25 15:27 UA pH 6.0 Last Edit by Elma Young [facility] on 01/16/25 15:27 UA Blood 0 Manish/uL Last Edit by Elma Young [facility] on 01/16/25 15:27 UA Specific [place] 1.015 Last Edit by Elma Young [facility] on 01/16/25 15:27 UA Ketone Negative Last Edit by Elma Young [facility] on 01/16/25 15:27 UA Bilirubin 0 mg/dL Last Edit by Elma Young [facility] on 01/16/25 15:27 UA Glucose 0 mg/dL Last Edit by Emla Young [facility] on 01/16/25 15:27 Results Reviewed Results Reviewed: Laboratory Last Values Urine pH (Auto) 6.0 01/16/25 14:49 Specific [place] (Auto) 1.015 01/16/25 14:49 Urine Protein (Auto) 0 mg/dL 01/16/25 14:49 Glucose (UA)(Auto) 0 mg/dL 01/16/25 14:49 Urine Ketones (Auto) Negative 01/16/25 14:49 Urine Blood (Auto) 0 Manish/uL 01/16/25 14:49 Urine Nitrite (Auto) Negative 01/16/25 14:49 Urine Bilirubin (Auto) 0 mg/dL 01/16/25 14:49 Urine Urobilinogen (Auto) 0.2 mg/dL 01/16/25 14:49 Leukocyte Esterase (Auto) 0 Nicki/uL 01/16/25 14:49 Date of Service: 12/13/24 Procedure(s): US retroperitoneal comp FINDINGS: Right kidney: The right kidney measures 11.8 x 6.8 x 6.1 cm. Renal parenchymal echotexture and thickness are normal. There is a 3.0 x 2.2 x 3.0 cm cystic lesion demonstrating multiple septations and calcifications of the septum. An additional complex cyst is seen in the interpolar region measuring 3.5 x 3.3 x 3.8 cm which also demonstrates septations and calcifications of the septa. A smaller 1.4 x 1.4 x 1.3 cm complex cyst is seen in the interpolar region, demonstrating wall calcification. There are multiple simple cysts in the interpolar region measuring 1.5 x 1.1 x 1.7 cm, 1.0 x 0.5 x 0.9 cm, and 4.0 x 3.4 x 4.2 cm. Multiple nonobstructing calculi are noted in the interpolar region measuring 4 x 4 x 4 mm, 5 x 4 x 5 mm, and 4 x 2 x 5 mm. At the upper pole, a collection of calculi is seen measuring 9 x 11 x 12 mm in aggregate. There is no hydronephrosis. Left Kidney: The left kidney measures 10.7 x 5.9 x 5.2 cm. Renal parenchymal echotexture and thickness are normal. There is a 1.6 x 1.2 x 1.1 cm septated cyst in the interpolar region. An additional solid-appearing mass is noted at the upper pole measuring 3.0 x 2.4 x 1.9 cm. There is no hydronephrosis or renal calculi. The urinary bladder is unremarkable. A right ureteral jet is identified. No left jet is seen. Before voiding, the urinary bladder measured 10.2 x 8.1 x 6.9 cm, for an estimated volume of 298 mL. After voiding, the urinary bladder measured 5.5 x 4.7 x 3.6 cm, for an estimated volume of 49 mL. The prostate measures 5.4 x 5.1 x 4.8 cm, for an estimated volume of 69.1 mL. IMPRESSION: 1. 3.0 x 2.4 x 1.9 cm solid mass at the upper pole of the left kidney. Renal protocol CT or MRI is recommended. 2. Multiple complex appearing renal cysts are seen bilaterally as described above. These could also be evaluated by CT or MRI. 3. Right nephrolithiasis as described. 4. Post void bladder residual of 49 mL. 5. Prostate volume of 69.1 mL. Assessment & Plan Assessment & Plan (1) Renal cyst: Code(s): N28.1 - Cyst of kidney, acquired Category: Medical (2) Elevated PSA: Code(s): R97.20 - Elevated prostate specific antigen [PSA] Category: Medical (3) Enlarged prostate: Code(s): N40.0 - Benign prostatic hyperplasia without lower urinary tract symptoms Category: Medical (4) Erectile dysfunction: Code(s): N52.9 - Male erectile dysfunction, unspecified Category: Medical (5) Nephrolithiasis: Code(s): N20.0 - Calculus of kidney Category: Medical Plan In office urinalysis results with the patient today; as noted above. Most recent retroperitoneal ultrasound results reviewed with the patient today; as noted above. Most recent PSA results reviewed with the patient today; as noted above. All questions were answered. We did discuss elevated PSA in the setting of compliance with finasteride as well as renal cysts. Will obtain CT renal mass protocol for further assessment evaluation. BUN and creatinine ordered for imaging. Will obtain MRI of the prostate for further assessment evaluation. Continue low-dose Cialis as well as finasteride as discussed and prescribed. He currently denies any bothersome urinary issues or concerns. Reports be happy with current voiding parameters. Will obtain redraw of PSA with no sex the night before, no caffeine morning of, and no heavy lifting 1-2 days prior. Follow-up in 1-3 months with imaging and labs; or sooner with any issues, concerns, and or questions. Orders: Orders MR Prostate wo/w con 01/16/25 R97.20 - Elevated prostate specific antigen [PSA] AMB Urinalysis Automated 01/16/25 Z13.9 - Encounter for screening, unspecified CT abdomen pelvis wo/w IV con 01/16/25 N28.1 - Cyst of kidney, acquired PSA,Total (Free>4and<10) 01/16/25 R97.20 - Elevated prostate specific antigen [PSA] Blood Urea Nitrogen 01/16/25 R39.15 - Urgency of urination Creatinine 01/16/25 R39.15 - Urgency of urination Patient Instructions: The patient had an opportunity to ask questions regarding the treatment plan. All questions were answered. Physical exam, labs, and imaging were discussed and reviewed in detail. As well as risks, benefits, and discussion of treatment choices. No major barriers to understanding were identified. The patient expressed understanding and agreement with the above treatment plan. The patient was made aware they should contact our office by phone for worsening of their current condition, the appearance of new symptoms, or with any questions or concerns. Compliance is encouraged with any medications and follow up testing that is ordered. It is a privilege to be allowed the opportunity to participate in? your urological care.? Again, if you have any questions or concerns If you have any questions or concerns please do not hesitate to contact me. The office is [phone]. This note is constructed using voice recognition software. While every effort has been made to ensure accuracy china painter errors may have been included. Yours sincerely, LEANN Laguna Coding Level of Care Code Est Pt Level 3 (64511) Complex EM visit Add On G2211 Diagnoses Renal cyst N28.1 Elevated PSA R97.20 Enlarged prostate N40.0 Erectile dysfunction N52.9 Nephrolithiasis N20.0
--- OUTSIDE RECORDS SUMMARY | 2025-01-16 18:01 | XMS_ITS | Encounter Summary ---
Author Organization [employer] Address [address] [place] [address] [place] [address] Care Team Providers Care Fine Sander Name Role Phone Nilsa Morse MD Primary Care Provider [phone]- [phone] Reason for Visit * Reason Onset Date Comments Med Refill 12/30/2023 Encounter Details Date Type Department Care Team ([facility] st Contact Info) Description 12/30/2023 Refill [facility] [address] [place] [address] Nilsa Morse MD [address] [place] [address] Primary hypertension Social History Tobacco Use Types [...] documented as of this encounter Care Teams Fine Sander Relationship Specialty Start Date End Date Nilsa Morse MD [address] [place] [phone] PCP - General Internal Medicine 04/25/23 documented as of this encounter
--- OUTSIDE RECORDS SUMMARY | 2025-01-16 18:01 | XMS_ITS | Encounter Summary ---
Author Organization [employer] Address [address] [place] [address] [address] [place] [address] Care Team Providers Care Occupational Nurse Name Role Phone Nilsa Morse MD Primary Care Provider [phone]- [phone] Encounter Details Date Type Department Care Team (Late st Contact Info) Description 04/16/2023 Refill [facility] MED[facility] [address] [place] [address] Nilsa Morse MD [address] [place] [address] Primary hypertension Social History Tobacco Use Types [...] hypertension documented in this encounter Care Teams Occupational Nurse Relationship Specialty Start Date End Date Nilsa Morse MD [address] [place] [address] PCP - General Internal Medicine 04/25/23 documented as of this encounter
--- OUTSIDE RECORDS SUMMARY | 2025-01-16 18:01 | XMS_ITS | Encounter Summary ---
Author Organization [employer] Address [address] [place] [address] [address] [place] [address] Care Team Providers Care Scale Tank Operator Name Role Phone Nilsa Morse MD Primary Care Provider [phone]- [phone] Encounter Details Date Type Department Care Team (Late st Contact Info) Description 01/18/2023 Orders Only [facility] [address] [place], [place] [phone] Nilsa Morse MD [address] [place] [address] Primary hypertension Social History Tobacco Use Types [...] hypertension documented in this encounter Care Teams Scale Tank Operator Relationship Specialty Start Date End Date Nilsa Morse MD [address] [place] [address] PCP - General Internal Medicine 04/25/23 documented as of this encounter
--- OUTSIDE RECORDS SUMMARY | 2025-01-16 18:01 | XMS_ITS | Encounter Summary ---
Author Organization [employer] Address [address] [place] [address] 7 [place] [address] Care Team Providers Care Division Operations Manager Name Role Phone Nilsa Morse MD Primary Care Provider [phone] Encounter Details Date Type Department Care Team (Late st Contact Info) Description 05/24/2024 Orders Only [facility] [address] [place], [place] [phone] Provider, MD Agatha Social History Tobacco Use [...] documented as of this encounter Care Teams Division Operations Manager Relationship Specialty Start Date End Date Nilsa Morse MD [address] [place] [address] PCP - General Internal Medicine 04/25/23 documented as of this encounter
--- OUTSIDE RECORDS SUMMARY | 2025-01-16 18:01 | XMS_ITS | Encounter Summary ---
Author Organization [employer] Address [address] [facility] 7 [place] [address] Care Team Providers Care Quality Control Projectionist Name Role Phone Nilsa Morse MD Primary Care Provider [phone] Encounter Details Date Type Department Care Team (Late st Contact Info) Description 04/19/2022 Orders Only [facility] [address] [place] [address] Nilsa Morse MD [address] [place] [address] Primary hypertension (Primary Dx) Social History Tobacco [...] hypertension documented in this encounter Care Teams Quality Control Projectionist Relationship Specialty Start Date End Date Nilsa Morse MD [address] [place] [address] PCP - General Internal Medicine 04/25/23 documented as of this encounter
--- OUTSIDE RECORDS SUMMARY | 2025-01-16 18:01 | XMS_ITS | Encounter Summary ---
Author Organization [employer] Address [address] [place] [address] 7 [place] [address] Care Team Providers Care Beer Merchant Name Role Phone Nilsa Morse MD Primary Care Provider [phone] Encounter Details Date Type Department Care Team (Late st Contact Info) Description 08/26/2024 Orders Only [facility] & PEDS [address] [place], [place] [phone] Nilsa Morse MD [address] [place] [address] Other male erectile dysfunction Social History Tobacco [...] documented as of this encounter Care Teams Beer Merchant Relationship Specialty Start Date End Date Nilsa Morse MD [address] [place] [address] PCP - General Internal Medicine 04/25/23 documented as of this encounter
--- OUTSIDE RECORDS SUMMARY | 2025-01-16 18:01 | XMS_ITS | Encounter Summary ---
Author Organization [employer] Address [address] [place] [address] Care Team Providers Care Measurement And Verification Engineer Name Role Phone Nilsa Morse MD Primary Care Provider [phone] Reason for Visit * Reason Onset Date Comments Med Refill 08/21/2023 Encounter Details Date Type Department Care Team ([facility] st Contact Info) Description 08/21/2023 Refill [facility] PEDS [address] [place] [address] Nilsa Morse MD 505 [place] [address] Other male erectile dysfunction Social History Tobacco [...] documented as of this encounter Care Teams Measurement And Verification Engineer Relationship Specialty Start Date End Date Nilsa Morse MD [address] [place] [address] PCP - General Internal Medicine 04/25/23 documented as of this encounter
--- OUTSIDE RECORDS SUMMARY | 2025-01-16 18:01 | XMS_ITS | Encounter Summary ---
Author Organization [employer] Address [address] [place] [address] Care Team Providers Care Small Business Consultant Name Role Phone Nilsa Morse MD Primary Care Provider [phone] Reason for Referral * Consultation (Routine) - Closed Specialty Diagnoses / Procedures Referred By Melvi t Referred To Contact Chiropractic Medicine Diagnoses Neck pain Nilsa Morse MD [address] [place] [address] Phone: tel: fax: [facility] [address] [place] [address] Phone: tel: fax: Referral ID Status Reason Start Date Expiration Date V isits Requested Visits Authorized [id number] Closed Specialty Services Required 05/31/2023 05/30/2024 1 1 * Consultation (Routine) - Closed Specialty Diagnoses / Procedures Referred By Contac t Referred To Contact Urology Diagnoses Nocturia Elevated PSA Nilsa Morse MD [address] [place] [address] Phone: tel: fax: Bernard Pang MD [address] [place] [address] Drive [address] [place] [address] Phone: tel: Referral ID Status Reason Start Date Expiration Date V isits Requested Visits Authorized [id number] Closed Specialty Services Required 05/25/2023 05/24/2024 1 1 Encounter Details Date Type Department Care Team (Late st Contact Info) Description 05/25/2023 Orders Only [facility] MED & PEDS [address] [place] [address] Nilsa Morse MD [address] [place] [address] Nocturia (Primary Dx); Elevated PSA; Neck pain [...] documented as of this encounter Care Teams Small Business Consultant Relationship Specialty Start Date End Date Nilsa Morse MD [address] [place] [address] PCP - General Internal Medicine 04/25/23 documented as of this encounter
--- OUTSIDE RECORDS SUMMARY | 2025-01-16 18:01 | XMS_ITS | Encounter Summary ---
Author Organization [employer] Address [address] [place] [address] 7 [place] [address] Care Team Providers Care Orthopedic Assistant Name Role Phone Nilsa Morse MD Primary Care Provider [phone] Encounter Details Date Type Department Care Team (Late st Contact Info) Description 07/26/2023 Orders Only [facility] MED & PEDS [address] [place], [place] [phone] Nilsa Morse MD 505 [place] [address] Other male erectile dysfunction (Primary Dx) Social [...] AM EDT Narrative 09/06/2023 10:42 AM EDT [address] [address] Ultrasound Report Signed Patient: Joseph Bishop MR#: [id number] 953 : 1970 Acct:[id number] Age/Sex: 52 / M ADM Date: 08/16/23 Loc: HO.US Attending Dr: Bhavana COTOPNicci Ordering Physician: Bhavana Valdivia Date of Service: 08/16/23 Procedure(s): US retroperitoneal comp Accession Number(s): [id number] cc: Nilsa Morse MD; Bhavana Valdivia EXAMINATION: [...] in OV> 09/06/23 1038 DD/ 1020 TD/TT: Fiber Optics Engineer: SS Procedure Note Donotuseinterpreter, Image - 09/06/[address] [address] Ultrasound Report Signed Patient: Cami Bishop#: [id number] 953 : 1970Acct:[id number] Age/Sex: 52 / MADM Date: 08/16/23 Loc: HO.US Attending Dr: Bhavana NORIEGA Ordering Physician: Bhavana Valdivia Date of Service: 08/16/23 Procedure(s): US retroperitoneal comp Accession Number(s): [id number] cc: Nilsa Morse MD; Bhavana Valdivia EXAMINATION: [...] in OV> 09/06/23 1038 DD/ 1020 TD/TT: Fiber Optics Engineer: ODALYS [facility] External Provider IMG US PROCEDURES Final Result documented in this encounter Visit Diagnoses Diagnosis Other male erectile dysfunction- Primary documented in this encounter Additional Health Concerns Assessment Noted Time PHQ-9 Depression Total Score: 1 05/23/19 24 10:34 AM EDT documented as of this encounter Care Teams Orthopedic Assistant Relationship Specialty Start Date End Date Nilsa Morse MD [address] [place] [address] PCP - General Internal Medicine 04/25/23 documented as of this encounter
--- OUTSIDE RECORDS SUMMARY | 2025-01-16 18:01 | XMS_ITS | Encounter Summary ---
Author Organization [employer] Address [address] [place] [address] [place] [address] Care Team Providers Care Clinical Educator Name Role Phone Nilsa Morse MD Primary Care Provider [phone] Reason for Visit * Reason Comments Med Refill Encounter Details Date Type Department Care Team ([facility] st Contact Info) Description 01/12/2023 Refill [facility] [address] [place], [place] [phone] Nilsa Morse MD [address] [place] [address] Primary hypertension Social History Tobacco Use Types [...] hypertension documented in this encounter Care Teams Clinical Educator Relationship Specialty Start Date End Date Nilsa Morse MD [address] [place] [address] PCP - General Internal Medicine 04/25/23 documented as of this encounter
--- OUTSIDE RECORDS SUMMARY | 2025-01-16 18:01 | XMS_ITS | Encounter Summary ---
Author Organization [employer] Address [address] [place] [address] 7 [place] [address] Care Team Providers Care Merchandise Presentation Associate Name Role Phone Nilsa Morse MD Primary Care Provider [phone] Encounter Details Date Type Department Care Team (Late st Contact Info) Description 04/21/2023 Orders Only [facility] MED & PEDS 505 [place], [place] [phone] Nilsa Morse MD [address] [place] [address] Primary hypertension Social History Tobacco Use Types [...] hypertension documented in this encounter Care Teams Merchandise Presentation Associate Relationship Specialty Start Date End Date Nilsa Morse MD [address] [place] [address] PCP - General Internal Medicine 04/25/23 documented as of this encounter
--- OUTSIDE RECORDS SUMMARY | 2025-01-16 18:01 | XMS_ITS | Encounter Summary ---
Author Organization [employer] Address [address] [place] [address] [place] [address] Care Team Providers Care Window Display Designer Name Role Phone Nilsa Morse MD Primary Care Provider [phone] Encounter Details Date Type Department Care Team (Late st Contact Info) Description 06/23/2023 Orders Only [facility] CH[facility] MED & PEDS [address] [place], [place] [phone] Nilsa Morse MD 505 [place] [address] Other male erectile dysfunction Social History Tobacco [...] documented as of this encounter Care Teams Window Display Designer Relationship Specialty Start Date End Date Nilsa Morse MD [address] [place] [address] PCP - General Internal Medicine 04/25/23 documented as of this encounter
--- OUTSIDE RECORDS SUMMARY | 2025-01-16 18:01 | XMS_ITS | Clinical Summary ---
Author Organization [employer] Address [address] [place] [address] 7 [place] [address] Care Team Providers Care Production Control Technologist Name Role Phone Nilsa Morse MD Primary Care Provider [phone] Allergies No known active allergies Medications tadalafil [...] Encounters Date Type Department Care Team Description 12/13/2024 Orders Only [facility] External Provider, [facility] from Last 3 Months Immunizations Immunization Administration [...] is your housing situation today? I have faisalana rosa sanabria 10/31/[address] you [...] CT Colonography 1970 Colonoscopy 1970 FIT 1970 Sigmoidoscopy 1970 Hepatitis B Vaccines (1 of 3 - 19+ 3-dose series) 1989 Pneumococcal Vaccine: 50+ Years (1 of 1 - PCV) 2020 Zoster Vaccines (1 of 2) 2020 Depression Screening 05/22/2024 05/23/2023, 05/23/19 FOBT 05/25/2024 05/26/2023 SDOH Screening 10/30/2024 10/31/2023 COVID-19 Vaccine ( season) 2024 05/23/2023, 03/04/2021, 07/27/2020, Additional history exists Influenza Vaccine (#1) 2024 Tobacco Screening 11/08/2024 [...] Associated Diagnosis Comments US RETROPERITONEAL COMPLETE Routine 12/13/2024 2:36 PM EDT HEPATITIS C VIRAL RNA, QUANTITATIVE, REAL-TIME PCR Routine 06/04/2024 11:41 AM EDT Annual physical exam Primary hypertension LIPID PANEL, STANDARD Routine 06/04/2024 11:41 AM EDT Annual physical exam Primary hypertension LAB COLOGUARD COLON CANCER SCREEN Routine 05/26/2023 8:30 AM EDT Annual physical exam Screening for colon cancer from Last 3 Months or Most Recently Relevant to Health Maintenance Results * US Retroperitoneal Complete (12/13/2024 2:36 PM EDT) Anatomical Region Laterality Modality Ultrasound 12/13/2024 2:36 PM EDT Narrative 12/13/2024 3:41 PM EDT [facility] [address] [place] [address] [place] [address] Ultrasound Report Signed Patient: Joseph Bishop MR#: [id number] 953 : 1970 Acct:[id number] Age/Sex: 54 / M ADM Date: 12/13/24 Loc: HO.HMGCX Attending Dr: Bhavana PARKER Ordering Physician: Bhavana Valdivia Date of Service: 12/13/24 Procedure(s): US retroperitoneal comp Accession Number(s): [id number] cc: Nilsa Morse MD; Bhavana Valdivia Reason for Exam: N20.0 - Calculus of kidney EXAMINATION: US RETROPERITONEUM HISTORY: N20.0 - Calculus of kidney TECHNIQUE: Real-time grayscale ultrasound imaging of the kidneys was performed and images were reviewed. COMPARISON: Comparison is made with the prior examination dated 08/16/2023. FINDINGS: Right kidney: The right kidney measures 11.8 x 6.8 x 6.1 cm. Renal parenchymal echotexture and thickness are normal. There is a 3.0 x 2.2 x 3.0 cm cystic lesion demonstrating multiple septations and calcifications of the septum. An additional complex cyst is seen in the interpolar region measuring 3.5 x 3.3 x 3.8 cm which also demonstrates septations and calcifications of the septa. A smaller 1.4 x 1.4 x 1.3 cm complex cyst is seen in the interpolar region, demonstrating wall calcification. There are multiple simple cysts in the interpolar region measuring 1.5 x 1.1 x 1.7 cm, 1.0 x 0.5 x 0.9 cm, and 4.0 x 3.4 x 4.2 cm. Multiple nonobstructing calculi are noted in the interpolar region measuring 4 x 4 x 4 mm, 5 x 4 x 5 mm, and 4 x 2 x 5 mm. At the upper pole, a collection of calculi is seen measuring 9 x 11 x 12 mm in aggregate. There is no hydronephrosis. Left Kidney: The left kidney measures 10.7 x 5.9 x 5.2 cm. Renal parenchymal echotexture and thickness are normal. There is a 1.6 x 1.2 x 1.1 cm septated cyst in the interpolar region. An additional solid-appearing mass is noted at the upper pole measuring 3.0 x 2.4 x 1.9 cm. There is no hydronephrosis or renal calculi. The urinary bladder is unremarkable. A right ureteral jet is identified. No left jet is seen. Before voiding, the urinary bladder measured 10.2 x 8.1 x 6.9 cm, for an estimated volume of 298 mL. After voiding, the urinary bladder measured 5.5 x 4.7 x 3.6 cm, for an estimated volume of 49 mL. The prostate measures 5.4 x 5.1 x 4.8 cm, for an estimated volume of 69.1 mL. US/US retroperitoneal comp IMPRESSION: 1. 3.0 x 2.4 x 1.9 cm solid mass at the upper pole of the left kidney. Renal protocol CT or MRI is recommended. 2. Multiple complex appearing renal cysts are seen bilaterally as described above. These could also be evaluated by CT or MRI. 3. Right nephrolithiasis as described. 4. Post void bladder residual of 49 mL. 5. Prostate volume of 69.1 mL. Electronically signed by: Thien Natarajan MD 12/13/2024 03:39 PM EDT RP Dictated By: Thien Natarajan MD Signed By: <Electronically signed by Thien Natarajan MD in OV> 12/13/24 1539 DD/ 1436 TD/TT: 12/13/24 1455 Cable Tower Operator: Procedure Note Donotuseinterpreter, Image - 12/13/2024 [facility] [address] [place] [address] [place] [address] Ultrasound Report Signed Patient: Cami Bishop#: [id number] 953 : 1970Acct:[id number] Age/Sex: 54 / MADM Date: 12/13/24 [facility] Dr: Bhavana NORIEGA Ordering Physician: Bhavana Valdivia Date of Service: 12/13/24 Procedure(s): US retroperitoneal comp Accession Number(s): [id number] cc: Nilsa Morse MD; Bhavana Valdivia Reason for Exam: N20.0 - Calculus of kidney EXAMINATION: US RETROPERITONEUM HISTORY: N20.0 - Calculus of kidney TECHNIQUE: Real-time grayscale ultrasound imaging of the kidneys was performed and images were reviewed. COMPARISON: Comparison is made with the prior examination dated 08/16/2023. FINDINGS: Right kidney: The right kidney measures 11.8 x 6.8 x 6.1 cm. Renal parenchymal echotexture and thickness are normal. There is a 3.0 x 2.2 x 3.0 cm cystic lesion demonstrating multiple septations and calcifications of the septum. An additional complex cyst is seen in the interpolar region measuring 3.5 x 3.3 x 3.8 cm which also demonstrates septations and calcifications of the septa. A smaller 1.4 x 1.4 x 1.3 cm complex cyst is seen in the interpolar region, demonstrating wall calcification. There are multiple simple cysts in the interpolar region measuring 1.5 x 1.1 x 1.7 cm, 1.0 x 0.5 x 0.9 cm, and 4.0 x 3.4 x 4.2 cm. Multiple nonobstructing calculi are noted in the interpolar region measuring 4 x 4 x 4 mm, 5 x 4 x 5 mm, and 4 x 2 x 5 mm. At the upper pole, a collection of calculi is seen measuring 9 x 11 x 12 mm in aggregate. There is no hydronephrosis. Left Kidney: The left kidney measures 10.7 x 5.9 x 5.2 cm. Renal parenchymal echotexture and thickness are normal. There is a 1.6 x 1.2 x 1.1 cm septated cyst in the interpolar region. An additional solid-appearing mass is noted at the upper pole measuring 3.0 x 2.4 x 1.9 cm. There is no hydronephrosis or renal calculi. The urinary bladder is unremarkable. A right ureteral jet is identified. No left jet is seen. Before voiding, the urinary bladder measured 10.2 x 8.1 x 6.9 cm, for an estimated volume of 298 mL. After voiding, the urinary bladder measured 5.5 x 4.7 x 3.6 cm, for an estimated volume of 49 mL. The prostate measures 5.4 x 5.1 x 4.8 cm, for an estimated volume of 69.1 mL. US/US retroperitoneal comp IMPRESSION: 1. 3.0 x 2.4 x 1.9 cm solid mass at the upper pole of the left kidney. Renal protocol CT or MRI is recommended. 2. Multiple complex appearing renal cysts are seen bilaterally as described above. These could also be evaluated by CT or MRI. 3. Right nephrolithiasis as described. 4. Post void bladder residual of 49 mL. 5. Prostate volume of 69.1 mL. Electronically signed by: Thien Natarajan MD 12/13/2024 03:39 PM EDT Dictated By: Thien Natarajan MD Signed By: <Electronically signed by Thien Natarajan MD in OV> 12/13/24 1539 DD/ 1436 TD/TT: 12/13/24 1455 Cable Tower Operator: us [facility] External Provider IMG US PROCEDURES Final Result * Hepatitis C Viral RNA, Quantitative, Real-Time PCR (06/04/2024 11:41 AM EDT) Pathologist [facility] Hepatitis C Viral Load <15 NOT DETECTED NOT DETECTED IU/mL [facility] HCV Log PCR <1.18 NOT DETECTED NOT DETECTED Log IU/mL [facility] Comment:For additional infor cece, please refer tohttp://education.[employer]/faq/ZLR94b4(This link is being provided for informational/educational purposes only.)THIS TEST WAS PERFORMED AT:[employer] [place] [id number] AKERS MD Blood Venous blood specimen / Unknown 06/04/2024 11:41 AM EDT 06/04/2024 2:43 PM EDT Nilsa Morse MD LAB BLOOD ORDERABLES Final Result [facility] [address] [place] [address] [phone] * (ABNORMAL) Lipid Panel, Standard (06/04/2024 11:41 AM EDT) Pathologist [facility] Triglycerides 124 <150 mg/dL [facility] Comment:Desirable Triglyceri de: less than 150 mg/dLBorderline High Triglyceride 150-199 mg/dLHigh Triglyceride: 200-499 mg/dLVery High Triglyceride: greater than or equal to 5OO mg/dL Cholesterol 161 <200 mg/dL [facility] Comment:Desirable Cholestero l: less than 200 mg/dLBorderline High Cholesterol: 200-239 mg/dLHigh Cholesterol: greater than 239 mg/dL LDL Cholesterol Calculated 107(H) <100 mg/dL [facility] Comment:Desirable LDL: less than 100 mg/dLNear Optimal/Above Optimal LDL: 110- 129 mg/dLBorderline High LDL: 130-159 mg/dLHigh LDL: 160-189 mg/dLVery High LDL: greater than or equal to 190 mg/dL HDL Cholesterol 30(L) >40 mg/dL [facility] Comment:Desirable HDL: great er than 40 mg/dL Note: This HDL assay may give artificially low results in patients with liver disease. Blood Venous blood specimen / Unknown 06/04/2024 11:41 AM EDT 06/04/2024 2:43 PM EDT Nilsa Mrose MD LAB BLOOD ORDERABLES Final Result [facility] [address] [place] [address] [phone] * (ABNORMAL) Cologuard?? colon cancer screening (05/26/2023 8:30 AM EDT) Cologuard Result Positive( A) Negative 06/01/2023 3:26 AM EDT [facility] (CLIA #:[id number]) Comment: POSITIVE TEST RESULT. A positive Cologuard [...] Manuel Gant al, N Engl J Med 2014;370(14):4915-7895.) Cologuard may produce a false negative or false positive result (no colorectal cancer or precancerous polyp present at colonoscopy follow up). A negative Cologuard test result does not guarantee the absence of CRC or advanced adenoma (pre-cancer). The current Cologuard screening interval is every 3 years. ([place] [employer] and U.S. Multi-Society Task Force). Cologuard performance data in a 10,000 patient pivotal study using colonoscopy as the reference method can be accessed at the following location: www.[employer].com/results. Additional description of the Cologuard test process, warnings and precautions can be found at www.cologuard.com. Stool specimen (specimen) 05/26/2023 8:30 AM EDT 05/27/2023 12:52 PM EDT us Nilsa Morse MD LAB MOLECULAR DIAGNOSTICS O RDERABLES Final Result [facility] (CLIA #:[id number]) [address] [place] [address], from Last 3 Months or Most Recently Relevant to Health Maintenance Insurance [facility] C3 Care Teams Production Control Technologist Relationship Specialty Start Date End Date Nilsa Morse MD [address] [place] [address] PCP - General Internal Medicine 04/25/23
== END 2025-01-16 15:28 | disposition home or self-care (01) ==
LOC: HO.HUSH 14:43
PROVIDERS: PCP Internal Medicine; Visit Provider Nurse Practitioner Family
DX: Z13.9 Encounter for screening, unspecified (principal)

== ENCOUNTER → 2025-01-16 14:43 | Outpatient (BNVA) | payer MEDICAID, SELFPAY | PROVIDERS: PCP Internal Medicine; Visit Provider Nurse Practitioner Family | DX: N28.1 Cyst of kidney, acquired (principal); R97.20 Elevated prostate specific antigen [PSA]; N40.0 Benign prostatic hyperplasia without lower urinary tract symptoms; N52.9 Male erectile dysfunction, unspecified; N20.0 Calculus of kidney; Z13.9 Encounter for screening, unspecified | CPT/HCPCS: 81003; 99212 ==